=== PATIENT | female | born 1970 | race Caucasian/White ===

== ENCOUNTER 2021-07-01 08:49 | Emergency (ER) | payer MEDICAID, SELFPAY ==
[2021-07-01 08:57] VITALS: BP 201/99; PULSE 88; RESP 19; TEMP 36.6; O2SAT 97; BMI 35.2
--- NOTE | 2021-07-01 10:12 | ED_ITS ---
HPI - Wound/Laceration General Chief Complaint: Wound/Laceration Stated Complaint: lumps on back of thigh Time Seen by Provider: 07/01/21 10:12 Source: patient Mode of arrival: ambulatory Limitations: no limitations History of Present Illness HPI narrative: 51-year-old female with a history of hypertension and diabetes presents for a lump on the back of her left thigh and a lump over her butt crack. She also has lumps and sores on her belly. Patient states she has had a couple months of these ?breakouts? mostly on her belly and sometimes on her inner thigh. She has small red lesions that are sore and stick to her shirt when it is on her belly. Patient has had abscesses in the past, has never had to have them drained. The most painful spot is on the back of her left thigh that developed 1 week ago. No fevers, no nausea or vomiting, patient feels well otherwise. Patient saw her PCP who prescribed cream for yeast and an antibiotic for which patient does not know what it is. Patient says that those did not help. I am unclear if she actually got an antibiotic or if she got fluconazole instead. I do not have those records. Related Data Previous Rx's Medication Instructions Recorded cephalexin 500 mg capsule 500 mg PO QID 7 Days #28 cap 07/01/21 doxycycline hyclate 100 mg capsule 100 mg PO BID 10 Days #20 cap 07/01/21 Allergies Allergy/AdvReac Type Severity Reaction Status Date / Time No Known Allergies Allergy Unverified 06/22/20 16:36 [No Known Allergies*] Review of Systems Constitutional: Constitutional: Denies body ache(s), Denies chills, Denies fatigue, Denies fever(s), Denies headache(s), Denies malaise and Denies weakness Eyes: Eyes: Denies diplopia ENT: Denies vertigo, Denies dizziness, Denies headache(s) and Denies throat swelling Cardiovascular: Cardiovascular: Denies chest pain, Denies syncope, Denies leg edema, Denies lightheadedness, Denies Loss of Consciousness, Denies palpitations and Denies dyspnea Respiratory: Respiratory: Denies chest congestion, Denies cough and Denies dyspnea Gastrointestinal: Gastrointestinal: Denies abdominal pain, Denies hematochezia, Denies constipation, Denies diarrhea and Denies vomiting Musculoskeletal: Musculoskeletal: Reports no additional musculoskeletal complaints Integumentary/Breasts: Skin/Breast: Reports erythema, Reports rash, Reports skin pain and Reports sores Neurologic: Denies confusion, Denies vertigo, Denies dizziness, Denies syncope, Denies headache(s) and Denies weakness Psychiatric: Psychiatric: Denies anxiety, Denies confusion and Denies depression Endocrine: Endocrine: Denies fatigue and Denies palpitations Allergic/Immunologic: Allergic/Immunologic: Denies throat swelling PMFSH Past Medical History Medical History Diabetes HTN (hypertension) Social History Social History Advance Directives: No Patient : No Physical Exam Vital Signs: Vital Signs: Last Vital Signs Temp 98 F 07/01/21 08:57 Pulse 88 07/01/21 08:57 Resp 19 07/01/21 08:57 BP 201/99 H 07/01/21 08:57 Pulse Ox 97 07/01/21 08:57 Body Mass Index 35.2 Const: General: No confusion Nutritional Appearance: well nourished Orientation/consciousness: No confusion Limitations: no limitations Eyes: Conjunctivae: conjunctivae normal Pupils: Equal, round and reactive pupils present EOM: EOMs intact bilaterally Neck: Neck: Yes full ROM, Yes no lymphadenopathy and Yes supple Resp: Effort & Inspection: normal respiratory effort and able to speak in complete sentences Auscultation: clear to auscultation bilaterally, no crackles, no rales, no rhonchi and no wheezes Cardio: Rate: regular rate Rhythm: regular rhythm Heart sounds: S1 normal heart sound present and S2 normal heart sound present Skin: Other: Patient has multiple circular, excoriated, red lesions on her abdomen, she has an injury dated erythematous 2 cm non draining Jaime lesion on the back of her left thigh. Patient has are resolving abscess on the top of her gluteal cleft. No pointing, no drainage. Neuro: General: No confusion Cranial nerves: Yes Equal, round and reactive pupils present Extrem: General: Yes normal to inspection and Yes full ROM Psych: Appearance: grossly normal Affect: normal affect Attitude: cooperative Thought process: Normal thought process present Course Course Course Narrative: 51-year-old female with 2 months of multiple small abscesses, now presents for indurated, red, hard, non pointing lesion back of left thigh. We discussed if incision and drainage would be appropriate today. I think most likely it will not reveal much pus, as there is no fluctuance Discussed in detail that patient could should come back in 4 days if abscess is pointing, draining, not resolving. And we will do incision and drainage at that time I have it looks like this patient may be an MRSA carrier, will prescribe doxy and Keflex, will have patient follow-up with Dermatology Patient's blood pressure was elevated today, states that she did not take her blood pressure medicine today. Repeat BP 163/78 Discharge Plan Discharge Clinical Impression: Abscess of skin Qualifiers: Site of cutaneous abscess: unspecified site Qualified Code(s): L02.91 - Cutaneous abscess, unspecified Patient Disposition: Home, Self-Care Additional Instructions: Please call [facility] in [place] at [phone]. I have referred you to them, however when she had to call them as well. Please take both antibiotics. Please return if the bump on the back of your thigh gets worse, especially if by it is worse, at that point we may need to do an incision and drainage. Please return sooner if you have fevers, nausea vomiting, or any other new or concerning symptoms Prescriptions: New doxycycline hyclate 100 mg capsule 100 mg PO BID 10 Days Qty: 20 RF: 0 cephalexin 500 mg capsule 500 mg PO QID 7 Days Qty: 28 RF: 0 Referrals: Felisha Jones MD [Physician] - 2 days (Multiple abscesses on patient's abdomen and posterior thighs)
[2021-07-01 10:39] VITALS: BP 163/78; PULSE 69; RESP 16; TEMP 36.5; O2SAT 96
== END 2021-07-01 10:46 | disposition home or self-care (01) ==
PROVIDERS: Emergency Provider Emergency Medicine Emergency Medical Services; PCP Nurse Practitioner Family
DX: L02.91 Cutaneous abscess, unspecified (principal); I10 Essential (primary) hypertension; E11.9 Type 2 diabetes mellitus without complications; Z79.899 Other long term (current) drug therapy
CPT/HCPCS: 99283; 99284

== ENCOUNTER 2021-08-05 10:08 | Emergency (ER) | payer MEDICAID, SELFPAY ==
[2021-08-05 10:11] VITALS: BP 173/95; PULSE 89; RESP 18; TEMP 36.8; O2SAT 99; BMI 35.2
--- NOTE | 2021-08-05 11:41 | ED_ITS ---
HPI - Skin/Abscess/Foreign Bdy General Chief complaint: Skin/Abscess/Foreign Body Stated complaint: abscess Time Seen by Provider: 08/05/21 11:40 Source: patient Mode of arrival: ambulatory Limitations: no limitations History of Present Illness HPI narrative: 51-year-old female came in for evaluation of abscess. Patient been developing abscesses in different part of her body's, for the past 2 days she has been developing abscess on the left buttock cheek, which is draining pus for the past couple days, patient declined fever or chills. Related Data Previous Rx's Medication Instructions Recorded cephalexin 500 mg capsule 500 mg PO QID 7 Days #28 cap 07/01/21 doxycycline hyclate 100 mg capsule 100 mg PO BID 10 Days #20 cap 07/01/21 doxycycline hyclate 100 mg tablet 100 mg PO BID #14 tab 08/05/21 Allergies Allergy/AdvReac Type Severity Reaction Status Date / Time No Known Allergies Allergy Unverified 06/22/20 16:36 [No Known Allergies*] Review of Systems Review of Systems: All other systems are reviewed and are negative Constitutional: Reports as per HPI and Reports no additional constitutional complaints Eyes: Reports as per HPI and Reports no additional eye complaints Reports system reviewed and no additional complaints, except as documented Cardiovascular: Reports as per HPI and Reports no additional cardiovascular complaints Respiratory: Reports as per HPI and Reports no additional respiratory complaints Gastrointestinal: Reports as per HPI and Reports no additional gastrointestinal complaints Genitourinary: Reports no additional female genitourinary complaints Musculoskeletal: Reports no additional musculoskeletal complaints Skin/Breast: Reports system reviewed and no additional complaints, except as docu Psychiatric: Reports no additional psychiatric complaints Endocrine: Reports no additional endocrine complaints Hematologic/Lymphatic: Reports no additional hematologic/lymphatic complaints Allergic/Immunologic: Reports no additional allergic/immunologic complaints Reports system reviewed and no additional complaints, except as documented and Reports Abnormal speech present [facility] Past Medical History Medical History Diabetes HTN (hypertension) Social History Social History Advance Directives: Yes Advance Directives Information Provided: Yes Advance Directives on File: No Patient : No Physical Exam Vital Signs: Vital Signs: Last Vital Signs Temp 98.3 F 08/05/21 10:11 Pulse 89 08/05/21 10:11 Resp 18 08/05/21 10:11 BP 173/95 H 08/05/21 10:11 Pulse Ox 99 08/05/21 10:11 Body Mass Index 35.2 Vital signs have been reviewed as appeared to be correct. Blood pressure elevated.Heart rate normal. Respiration rate normal. Temperature normal. Oxygen saturation normal. Appearance: Alert. Oriented X3. No acute distress. Head: Normal external exam. Normocephalic. Atraumatic. No [place] signs noted. No raccoon eyes noted Eyes: PERRLA. EOMI. Conjunctiva and sclera normal. Eyelids normal. ENT: TM's Normal. Pharynx normal. Uvula midline. Moist mucous membranes. No trismus noted. No drooling noted. No muffled voice noted. Neck: Normal inspection. Neck supple. FROM. No adenopathy. Thyroid Normal. No meningeal signs. No neck mass noted. CVS: Normal heart rate and rhythm. Heart sound normal. No murmurs noted. Pulses normal throughout. Respiratory: No respiratory distress. Painless inspiration. Breath sounds normal. No wheezes/rales/rhonchi noted. Chest nontender. No accessory muscle usage noted or decreased air movement noted. Abdomen: Soft and nontender. Bowel sounds normal in all 4 quadrants. No distention noted. No organomegaly noted. No visible injury noted. Back: No CVA tenderness. Full range of motion noted. Rectal exam: 3 x 3 cm area of fluctuation surrounded by area of erythema and tenderness, white pus is been draining. Skin: Skin warm and dry. Normal skin color. Normal skin turgor. No rashes/lesions/lacerations noted. Extremities: No lower extremity edema. Extremities exhibit normal range of motion. Extremities nontender. Neuro: Oriented X 3. Cranial nerve exam: II-XII are grossly intact No motor deficit. No sensory deficit. Reflexes normal. MDM - Skin/Abscess/Foreign Bdy MDM Narrative Medical decision making narrative: Assessment and plan. Right buttock cheek abscess status post I&D, start patient on doxycycline. Procedures Abscess I/D Site: other (Right buttock cheek) Side (if applicable): right Local Anesthetic: lidocaine 1% Amount of anesthesia used (mL): 5 Technique: incised with blade Amount of fluid expressed (mL): 3 Sent for culture/gram staining?: No Irrigation: No Packing used?: none Complications: pain Discharge Plan Discharge Clinical Impression: Abscess of skin or subcutaneous tissue Patient Disposition: Home, Self-Care Instructions: Abscess (ED) Prescriptions: New doxycycline hyclate 100 mg tablet 100 mg PO BID Qty: 14 RF: 0 No Action doxycycline hyclate 100 mg capsule 100 mg PO BID 10 Days Qty: 20 RF: 0 cephalexin 500 mg capsule 500 mg PO QID 7 Days Qty: 28 RF: 0 Referrals: Eloina Zamora NP [Primary Care Provider] - 2 days
[2021-08-05] MEDS: Lidocaine HCl 1 % MPF 5 ML VIAL SUBCUT (11:45)
== END 2021-08-05 12:06 | disposition home or self-care (01) ==
PROVIDERS: Emergency Provider Emergency Medicine; PCP Nurse Practitioner Family
DX: L02.31 Cutaneous abscess of buttock (principal); E11.9 Type 2 diabetes mellitus without complications; I10 Essential (primary) hypertension
CPT/HCPCS: 10060; 99283; 99284

== ENCOUNTER 2023-07-21 02:17 | Emergency (ER) | payer OTHER, SELFPAY ==
[2023-07-21 02:26] VITALS: BP 187/91; PULSE 90; RESP 18; TEMP 36.7; O2SAT 95; BMI 38.6
[2023-07-21 02:54] VITALS: BP 167/81; PULSE 92; RESP 17; TEMP 36.8; O2SAT 96
--- OUTSIDE RECORDS SUMMARY | 2023-07-21 02:54 | XMS_ITS | Continuity of Care Document ---
Author Name Unknown Organization [facility] Address [address] [place] [address]- Care Team Providers Care Mechanical Intern Name Role Phone Sera KIM, Eloina Roberts Primary Care Physician Encounter [facility] Date(s): 10/19/19 - 10/29/19 [facility] [address] [place] [phone] Attending Physician: Roosevelt Bradshaw Admitting Physician: Roosevelt Bradshaw Referring Physician: AdmtrRoosevelt Allergies, Adverse Reactions, Alerts Substance Reaction Severity Status lisinopril cough Active Immunizations Given and Recorded Vaccine Date Status Refusal Reason influenza virus vaccine, inactivated 1 10/19/19 Gi breann influenza virus vaccine, inactivated 2 08/03/18 Gi breann influenza virus vaccine, inactivated 3 08/13/17 Gi breann influenza virus vaccine, inactivated 08/12/16 Give n influenza virus vaccine, inactivated 08/12/16 Give n influenza virus vaccine, inactivated 07/21/15 Give n tetanus/diphtheria/pertussis, acel(Tdap) 08/13/17 Given diphtheria-tetanus toxoids (DT) 10/16/03 Given 1Result Comment: FLU [facility] [id number] 2Result Comment: [08/03/2018] [facility] [id number] 3Result Comment: [id number] Medications amLODIPine 5 mg oral tablet 5 mg, 1, tablet, By Mouth, Daily, # 30 tablet, Refills 6, Tot. Refills 6, Maintenance, 10/19/19 11:58:00 EST, Route to Pharmacy Electronically, [facility]/pharmacy #[id number], 155, cm, 10/19/19 11:56:00 EST, Height Start Date: 10/19/19 Stop Date: 05/16/20 Status: Ordered losartan 100 mg oral tablet 1 tablet = 100 mg, By Mouth, Daily, # 30 tablet, 6 Refills, Maintenance, 10/19/19 11:52:00 EST, Tablet, [facility]/pharmacy #[id number], 155, cm, 10/19/19 11:24:00 EST, Height Start Date: 10/19/19 Stop Date: 05/16/20 Status: Ordered omeprazole 20 mg oral enteric coated capsule 1 capsule = 20 mg, By Mouth, Daily, # 30 capsule, 5 Refills, Maintenance, 11/26/18 11:39:04 EST Start Date: 11/26/18 Stop Date: 05/25/19 Status: Ordered Problem List Condition Effective Dates Status Health Status Inform ant Anemia(Confirmed) Active Benign paroxysmal positional vertigo(Confirmed) Active Heel spur(Confirmed) 1 12/25/17 Active Cardiomyopathy - . Resolved 06(Confirmed) Active High blood pressure(Confirmed) Active Dyspepsia(Confirmed) Active Recurrent ventral incisional hernia(Confirmed) Active Smoking(Confirmed) Active 1Left side - x-ray Social History Social History Type Response Tobacco Use: 4 or less cigar ettes(less than 1/4 pack)/day in last 30 days. Sex
--- OUTSIDE RECORDS SUMMARY | 2023-07-21 02:54 | XMS_ITS | Continuity of Care Document ---
Author Name Unknown Organization [facility] ter Address [address] [place] [phone]- Care Team Providers Care Grinding And Polishing Laborer Name Role Phone Sera KIM, Eloina Roberts Primary Care Physician Encounter [facility] Date(s): 10/19/19 - 10/26/[address] [phone]- [facility] Attending Physician: Eloina Zamora NP Allergies, Adverse Reactions, Alerts Substance Reaction Severity [...] toxoids (DT) 10/16/03 Given 1Result Comment: FLU [facility] 25652-785-85 2Result Comment: [08/03/2018] [facility] [id number] 3Result Comment: [id number] Medications amLODIPine 5 mg oral tablet 5 mg, 1, tablet, By Mouth, Daily, # 30 tablet, Refills 6, Tot. Refills 6, Maintenance, 10/19/19 11:58:00 EST, Route to Pharmacy Electronically, [facility]/pharmacy #[id number], 155, cm, 10/19/19 11:56:00 EST, Height Start Date: 10/19/19 Stop Date: 05/16/20 Status: Ordered losartan 100 mg oral tablet 1 tablet = 100 mg, By Mouth, Daily, # 30 tablet, 6 Refills, Maintenance, 10/19/19 11:52:00 EST, Tablet, [facility]/pharmacy #[id number], 155, cm, 10/19/19 11:24:00 EST, [...]
--- OUTSIDE RECORDS SUMMARY | 2023-07-21 02:54 | XMS_ITS | Continuity of Care Document ---
Author Name Unknown Organization [facility] Adult Address [address] [place] [phone]- Care Team Providers Care Cattyman Name Role Phone Sera KIM, Eloina Roberts Primary Care Physician Encounter [facility] Date(s): 01/04/21 - 02/03/21 [facility] [address] [place] [phone]- Allergies, Adverse Reactions, Alerts Substance Reaction Severity Status lisinopril cough Active Immunizations Given and Recorded Vaccine Date Status Refusal Reason influenza virus vaccine, inactivated 1 09/12/20 Gi breann influenza virus vaccine, inactivated 2 10/19/19 Gi breann influenza virus vaccine, inactivated 3 08/03/18 Gi breann influenza virus vaccine, inactivated 4 08/13/17 Gi breann influenza virus vaccine, inactivated 08/12/16 Give n influenza virus vaccine, inactivated 08/12/16 Give n influenza virus vaccine, inactivated 07/21/15 Give n tetanus/diphtheria/pertussis, acel(Tdap) 08/13/17 Given diphtheria-tetanus toxoids (DT) 10/16/03 Given 1Result Comment: [facility]: [id number] 2Result Comment: FLU [facility] [id number] 3Result Comment: [08/03/2018] [facility] [id number] 4Result Comment: [id number] Medications amLODIPine 10 mg oral tablet See Instructions, TAKE 1 TABLET BY MOUTH EVERY DAY, # 90 tablet, 1 Refills, Maintenance, 01/30/21 12:53:00 EDT, [facility]/pharmacy #[id number], 155, cm, 01/02/21 11:19:00 EDT, Height Start Date: 01/30/21 Status: Ordered amLODIPine 10 mg oral tablet 1 tablet = 10 mg, By Mouth, Daily, # 30 tablet, 0 Refills, Maintenance, 01/02/21 11:14:00 EDT, Tablet, [facility]/pharmacy #[id number], Partial fill upon patient request if the prescription is for a schedule II opioid drug., 155, cm, 01/02/21 10:46:00 EDT, Height Start Date: 01/02/21 Stop Date: 02/01/21 Status: Ordered BLOOD PRESSURE MONITOR BLOOD PRESSURE MONITOR, See Instructions, # 1 each, Refills 0, Tot. Refills 0, Maintenance, DX: HYPERTENSION, 06/29/20 12:53:00 EDT, Supply Start Date: 06/29/20 Status: Ordered ketoconazole 2% topical cream 1 application, Topically, Daily, # 60 Gm, 0 Refills, Maintenance, 11/27/20 13:46:00 EST, Cream, [facility]/pharmacy #[id number], Partial fill upon patient request if the prescription is for a schedule II opioid drug., 1 application Topically Daily, 155, cm, ... Start Date: 11/27/20 Status: Ordered losartan 50 mg oral tablet 50 mg, 1, tablet, By Mouth, Daily, # 30 tablet, Refills 6, Tot. Refills 6, Maintenance, 12/15/20 8:44:00 EST, Route to Pharmacy Electronically, [facility]/pharmacy #[id number], Partial fill upon patient request if the prescription is for a schedule II opioid drug.... Start Date: 12/15/20 Stop Date: 07/13/21 Status: Ordered meloxicam 15 mg oral tablet See Instructions, TAKE 1 TABLET BY MOUTH EVERY DAY, # 30 tablet, 0 Refills, Maintenance, [facility] STORE [id number], 155, cm, 01/02/21 11:19:00 EDT, Height Start Date: 01/30/21 Status: Ordered meloxicam 15 mg oral tablet 1 tablet = 15 mg, By Mouth, Daily, # 30 tablet, 0 Refills, Maintenance, 01/02/21 11:29:00 EDT, Tablet, [facility]/pharmacy #[id number], Partial fill upon patient request if the prescription is for a schedule II opioid drug., 155, cm, 01/02/21 11:19:00 EDT, Height Start Date: 01/02/21 Stop Date: 02/01/21 Status: Ordered metFORMIN 500 mg oral tablet 1 tablet = 500 mg, By Mouth, 2 times a day, # 60 tablet, 11 Refills, Maintenance, 01/04/21 9:20:00 EDT, Tablet, [facility]/pharmacy #[id number], Partial fill upon patient request if the prescription is for a schedule II opioid drug., 155, cm, 01/02/21 11:19:00 EDT... Start Date: 01/04/21 Stop Date: 12/30/21 Status: Ordered MoviPrep oral powder for reconstitution 240 mL, By Mouth, Every 15 minutes, Dose #1 evening before colonoscopy and dose #2 is 6 hours before colonoscopy, # 1 each, 0 Refills, Acute 04/06/21 6:30:00 EDT, 04/05/21 17:00:00 EDT, REC Powder, [facility]/pharmacy #[id number], test date 04/06/21, 240 mL By Mouth... Start Date: 04/05/21 Stop Date: 04/06/21 Status: Ordered Problem List Condition Effective Dates Status Health Status Inform ant Anemia(Confirmed) Active Benign paroxysmal positional vertigo(Confirmed) Active Heel spur(Confirmed) 1 12/25/17 Active Cardiomyopathy - . Resolved 06(Confirmed) Active Diabetes(Confirmed) Active High blood pressure(Confirmed) Active Dyspepsia(Confirmed) Active Recurrent ventral incisional hernia(Confirmed) Active Smoking(Confirmed) Active 1Left side - x-ray Social History Social History Type Response Tobacco Use: 4 or less cigar ettes(less than 1/4 pack)/day in last 30 days. Sex
--- OUTSIDE RECORDS SUMMARY | 2023-07-21 02:54 | XMS_ITS | Continuity of Care Document ---
Author Name Unknown Organization [facility] Address [address] [place] [phone]- Care Team Providers Care Division Supervisor Name Role Phone Sera KIM, Eloina Roberts Primary Care Physician Encounter [facility] Date(s): 01/10/20 - 01/20/20 [facility] [address] [place] [phone]- [facility] Attending Physician: Roosevelt Bradshaw Admitting Physician: AdmRoosevelt méndez Referring Physician: AdmtrRoosevelt Allergies, Adverse Reactions, Alerts [...] toxoids (DT) 10/16/03 Given 1Result Comment: FLU [facility] [id number] 2Result Comment: [08/03/2018] [facility] [id number] 3Result Comment: [id number] Medications amLODIPine 5 mg oral tablet 5 mg, 1, tablet, By Mouth, Daily, # 30 tablet, Refills 6, Tot. Refills 6, Maintenance, 10/19/19 11:58:00 EST, Route to Pharmacy Electronically, [facility]/pharmacy #[id number], 155, cm, 10/19/19 11:56:00 EST, Height Start Date: 10/19/19 Stop Date: 05/16/20 Status: Ordered losartan 100 mg oral tablet 1 tablet = 100 mg, By Mouth, Daily, # 30 tablet, 6 Refills, Maintenance, 10/19/19 11:52:00 EST, Tablet, [id number], 155, cm, 10/19/19 11:24:00 EST, Height [...]
--- OUTSIDE RECORDS SUMMARY | 2023-07-21 02:54 | XMS_ITS | Continuity of Care Document ---
Author Name Unknown Organization [facility] Adult Address [address] [place] [address]- Care Team Providers Care Commercial Agent Name Role Phone Sera KIM, Eloina Roberts Primary Care Physician [place] [facility] [place]22 [facility] [address] [place] [address]- Encounter Diagnosis Hypertension(Discharge Diagnosis) - 04/23/22 Attending Physician: Eloina Zamora NP Allergies, Adverse Reactions, Alerts Substance Reaction Severity Status lisinopril cough Active Immunizations Given and Recorded Vaccine Date Status Refusal Reason influenza virus vaccine, inactivated 1 08/10/21 Gi breann influenza virus vaccine, inactivated 2 09/12/20 Gi breann influenza virus vaccine, inactivated 3 10/19/19 Gi breann influenza virus vaccine, inactivated 4 08/03/18 Gi breann influenza virus vaccine, inactivated 5 08/13/17 Gi breann influenza virus vaccine, inactivated 08/12/16 Give n influenza virus vaccine, inactivated 08/12/16 Give n influenza virus vaccine, inactivated 07/21/15 Give n influenza virus vaccine, inactivated 12/01/14 Eleno rded SARS-CoV-2 (COVID-19) Ad26 vaccine 6 02/06/21 Give n tetanus/diphtheria/pertussis, acel(Tdap) 08/13/17 Given pneumococcal 23-valent vaccine 12/01/14 Recorded diphtheria-tetanus toxoids (DT) 10/16/03 Given 1Result Comment: [facility]# [id number] 2Result Comment: [facility]: [id number] 3Result Comment: FLU [facility] [id number] 4Result Comment: [08/03/2018] [facility] [id number] 5Result Comment: [id number] 6Result Comment: [facility]: [id number] Medications amLODIPine 10 mg oral tablet 1 tablet, By Mouth, Daily, # 90 tablet, 1 Refills, [id number], 153, cm, 08/10/21 10:40:00 EDT,Height, 84, kg, 04/06/21 9:15:00 EDT, Dry Weight Start Date: 08/16/21 Status: Ordered Bactrim DS 800 mg-160 mg oral tablet 1 tablet, By Mouth, 2 times a day, for 10 days, # 20 tablet, 0 Refills, Acute 05/03/22 11:50:00 EDT, 04/23/22 11:50:00 EDT, Tablet, [facility]/pharmacy #[id number], Partial fill upon patient request if the prescription is for a schedule II opioid drug., 1 tablet B... Start Date: 04/23/22 Stop Date: 05/03/22 Status: Ordered BLOOD PRESSURE MONITOR BLOOD PRESSURE MONITOR, See Instructions, # 1 each, Refills 0, Tot. Refills 0, Maintenance, DX: HYPERTENSION, 06/29/20 12:53:00 EDT, Supply Start Date: 06/29/20 Status: Ordered cephalexin monohydrate 500 mg oral capsule 1 capsule = 500 mg, By Mouth, 3 times a day, # 30 capsule, 0 Refills, Maintenance, 02/08/22 9:13:00EDT, Capsule, [facility]/pharmacy #[id number], Partial fill upon patient request if the prescription is for a schedule II opioid drug., 153, cm, 02/08/22 8:52:00 ED... Start Date: 02/08/22 Stop Date: 02/18/22 Status: Ordered hydrochlorothiazide 25 mg oral tablet 25 mg, 1, tablet, By Mouth, Daily, # 30 tablet, Refills 1, Tot. Refills 1, Maintenance, 04/23/22 11:48:00 EDT, Route to Pharmacy Electronically, [facility]/pharmacy #[id number], Partial fill upon patient request if the prescription is for a schedule II opioid drug... Start Date: 04/23/22 Stop Date: 06/22/22 Status: Ordered [employer] COVID-19 Vaccine preservative-free intramuscular suspension 0.5 mL, Intramuscular, Once, # 0.5 mL, 0 Refills, Soft Stop, 02/06/21 11:54:00 EDT, Suspension, [facility]/pharmacy #[id number], Partial fill upon patient request if the prescription is for a schedule II opioid drug., 0.5 mL Intramuscular Once, 155, cm, 02/06/21 1... Start Date: 02/06/21 Status: Ordered losartan 50 mg oral tablet 50 mg, 1, tablet, By Mouth, Daily, # 90 tablet, Refills 3, Tot. Refills 3, Maintenance, 02/06/21 11:55:00 EDT, Route to Pharmacy Electronically, [facility]/pharmacy #[id number], Partial fill upon patient request if the prescription is for a schedule II opioid drug... Start Date: 02/06/21 Stop Date: 02/01/22 Status: Ordered metFORMIN 500 mg oral tablet 1 tablet = 500 mg, By Mouth, 2 times a day, # 60 tablet, 11 Refills, Maintenance, 01/04/21 9:20:00 EDT, Tablet, [facility]/pharmacy #[id number], Partial fill upon patient request if the prescription is for a schedule II opioid drug., 155, cm, 01/02/21 11:19:00 EDT... Start Date: 01/04/21 Stop Date: 12/30/21 Status: Ordered omeprazole 20 mg oral delayed release tablet 1 tablet = 20 mg, By Mouth, Daily, # 30 tablet, 11 Refills, Maintenance, 04/23/22 11:47:00 EDT, [facility]/pharmacy #[id number], Partial fill upon patient request if the prescription is for a schedule II opioid drug., 153, cm, 04/23/22 11:21:00 EDT, Height, 84, kg... Start Date: 04/23/22 Stop Date: 04/18/23 Status: Ordered Problem List Condition Effective Dates Status Health Status Inform ant Anemia(Confirmed) Active Benign paroxysmal positional vertigo(Confirmed) Active Heel spur(Confirmed) 1 12/25/17 Active Cardiomyopathy - . Resolved 06(Confirmed) Active Diabetes(Confirmed) Active High blood pressure(Confirmed) Active Hypertension(Confirmed) Active Dyspepsia(Confirmed) Active Obese class II(Confirmed) Active Recurrent ventral incisional hernia(Confirmed) Active Smoking(Confirmed) Active 1Left side - x-ray Diagnosis Diagnosis Type Effective Dates Health Status Cl inical Service Informant Hypertension Discharge Diagnosis 04/23/22 Vital Signs Most recent to oldest [Reference Range]: 1 2 3 Height 153 cm (04/23/22 11:54 AM) 153 cm (04/23/22 11:21 AM) 153 cm (04/23/22 11:17 AM) Weight 90.4 kg (04/23/22 11:17 AM) Pulse Rate [55-90 bpm] 81 bpm (04/23/22 11:17 AM) Body Mass Index [18.5-24.99] 38.62 *>HHI* (04/23/22 11:17 AM) Blood Pressure [90-138/55-84 mm Hg] 148/82mm Hg *H* (04/23/22 11:54 AM) 156/87mm Hg *H* (04/23/22 11:21 AM) 164/90mm Hg *H* (04/23/22 11:17 AM) Blood pressure sites Arm, left (04/23/22 11:54 AM) Arm, left (04/23/22 11:21 AM) Arm, left (04/23/22 11:17 AM) Weight Obtained Via Standing scale (04/23/22 11:17 AM) Social History Social History Type Response Tobacco Use: 4 or less cigar ettes(less than 1/4 pack)/day in last 30 days. Sex
--- OUTSIDE RECORDS SUMMARY | 2023-07-21 02:54 | XMS_ITS | Continuity of Care Document ---
Author Name Unknown Organization [facility] Adult Address [address] [place] [address]- Care Team Providers Care Hat Liner Name Role Phone Sera KIM, Eloina Roberts Primary Care Physician [place] [facility] [place] 09/15/21 - 01/13/22 [facility] [address] [place] [address]- Attending Physician: Eloina Zamora NP Allergies, Adverse [...] diphtheria-tetanus toxoids (DT) 10/16/03 Given 1Result Comment: [facility]# [id number] 2Result Comment: [facility]: [id number] 3Result Comment: FLU [facility] [id number] 4Result Comment: [08/03/2018] [facility] [id number] 5Result Comment: [id number] 6Result Comment: [facility]: [id number] Medications amLODIPine 10 mg oral tablet 1 tablet, By Mouth, Daily, # 90 tablet, 1 Refills, [id number], 153, cm, 08/10/21 10:40:00 EDT,Height, 84, kg, 04/06/21 9:15:00 EDT, Dry Weight Start Date: 08/16/21 Status: Ordered BLOOD PRESSURE MONITOR BLOOD PRESSURE MONITOR, See Instructions, # 1 each, Refills 0, Tot. Refills 0, Maintenance, DX: HYPERTENSION, 06/29/20 12:53:00 EDT, Supply Start Date: 06/29/20 Status: Ordered [employer] COVID-19 Vaccine preservative-free intramuscular suspension 0.5 mL, Intramuscular, Once, # 0.5 mL, 0 Refills, Soft Stop, 02/06/21 11:54:00 EDT, Suspension, [facility]/pharmacy #[id number], Partial fill upon patient request if the prescription is for a schedule II opioid drug., 0.5 mL Intramuscular Once, 155, cm, 02/06/21 1... Start Date: 02/06/21 Status: Ordered losartan 50 mg oral tablet 50 mg, 1, tablet, By Mouth, Daily, # 90 tablet, Refills 3, Tot. Refills 3, Maintenance, 02/06/21 11:55:00 EDT, Route to Pharmacy Electronically, [facility]/pharmacy #[id number], Partial fill upon patient request if the prescription is for a schedule II opioid drug... Start Date: 02/06/21 Stop Date: 02/01/22 Status: Ordered metFORMIN 500 mg oral tablet 1 tablet = 500 mg, By Mouth, 2 times a day, # 60 tablet, 11 Refills, Maintenance, 01/04/21 9:20:00 EDT, Tablet, [facility]/pharmacy #[id number], Partial fill upon patient request if the prescription is for a schedule II opioid drug., 155, cm, 01/02/21 11:19:00 EDT... Start Date: 01/04/21 Stop Date: 12/30/21 Status: Ordered omeprazole 20 mg oral delayed release tablet 1 tablet = 20 mg, By Mouth, Daily, # 30 tablet, 11 Refills, Maintenance, 08/10/21 10:37:00 EDT, [facility]/pharmacy #[id number], Partial fill upon patient request if the prescription is for a schedule II opioid drug., 153, cm, 08/10/21 10:10:00 EDT, Height, 84, kg... Start Date: 08/10/21 Stop Date: 08/05/22 Status: Ordered sulfamethoxazole-trimethoprim 800 mg-160 mg oral tablet 1 tablet, By Mouth, 2 times a day, # 20 tablet, 0 Refills, Maintenance, 10/31/21 14:53:00 EST, Tablet, [facility]/pharmacy #[id number], Partial fill upon patient request if the prescription is for a schedule II opioid drug., 1 tablet By Mouth 2 times a day,x10 day... Start Date: 10/31/21 Stop Date: 11/10/21 Status: Ordered Problem List Condition Effective Dates Status Health Status Inform ant Anemia(Confirmed) Active Benign paroxysmal positional vertigo(Confirmed) Active Heel spur(Confirmed) 1 12/25/17 Active Cardiomyopathy - . Resolved 06(Confirmed) Active Diabetes(Confirmed) Active High blood pressure(Confirmed) Active Dyspepsia(Confirmed) Active Obese class II(Confirmed) Active Recurrent ventral incisional hernia(Confirmed) Active Smoking(Confirmed) Active 1Left side - x-ray Social History Social History Type Response Tobacco Use: 4 or less cigar ettes(less than 1/4 pack)/day in last 30 days. Sex
--- OUTSIDE RECORDS SUMMARY | 2023-07-21 02:54 | XMS_ITS | Continuity of Care Document ---
Author Name Unknown Organization [facility] Adult Address [address] [place] [address]- Care Team Providers Care Dressmaker Garment Fitter Name Role Phone Eloina Zamora NP Primary Care Physician En[place] [facility] [place] Date(s): 12/29/19 - 01/27/20 [facility] Adult [address] [place] [address]- [facility] Attending Physician: lEoina Zamora NP Allergies, Adverse Reactions, Alerts Substance [...] toxoids (DT) 10/16/03 Given 1Result Comment: [facility] [id number] 2Result Comment: [08/03/2018] [facility] [id number] 3Result Comment: [id number] Medications amLODIPine 5 mg oral tablet 5 mg, 1, tablet, By Mouth, Daily, # 30 tablet, Refills 6, Tot. Refills 6, Maintenance, 10/19/19 11:58:00 EST, Route to Pharmacy Electronically, [facility]/pharmacy #[id number], 155, cm, 10/19/19 11:56:00 EST, Height Start Date: 10/19/19 Stop Date: 05/16/20 Status: Ordered losartan 100 mg oral tablet 1 tablet = 100 mg, By Mouth, Daily, # 30 tablet, 6 Refills, Maintenance, 10/19/19 11:52:00 EST, Tablet, [facility]/pharmacy #[id number], 155, cm, 10/19/19 11:24:00 EST, [...]
--- OUTSIDE RECORDS SUMMARY | 2023-07-21 02:54 | XMS_ITS | Continuity of Care Document ---
Author Name Unknown Organization [facility] Address [address] [place] [address]- Care Team Providers Care Handle And Vent Machine Operator Name Role Phone Eloina Zamora NP Primary Care Physician [place] [facility] [place]13[place]21 [facility] [address] [place] [address]- Encounter Diagnosis Hypertension(Discharge Diagnosis) - 02/06/21 Attending Physician: Eloina Zamora NP Allergies, Adverse Reactions, Alerts Substance Reaction Severity Status lisinopril cough Active Immunizations Given and Recorded Vaccine Date Status Refusal Reason SARS-CoV-2 (COVID-19) Ad26 vaccine 1 02/06/21 Give n influenza virus vaccine, inactivated 2 09/12/20 Gi [...] diphtheria-tetanus toxoids (DT) 10/16/03 Given 1Result Comment: [facility]: [id number] 2Result Comment: [facility]: [id number] 3Result Comment: FLU [facility] [id number] 4Result Comment: [08/03/2018] [facility] [id number] 5Result Comment: [id number] Medications amLODIPine 10 mg oral tablet See Instructions, TAKE 1 TABLET BY MOUTH EVERY DAY, # 90 tablet, 1 Refills, Maintenance, 01/30/21 12:53:00 EDT, [facility]/pharmacy #[id number], 155, cm, 01/02/21 11:19:00 EDT, Height Start Date: 01/30/21 Status: Ordered BLOOD PRESSURE MONITOR BLOOD PRESSURE MONITOR, See Instructions, # 1 each, Refills 0, Tot. Refills 0, Maintenance, DX: HYPERTENSION, 06/29/20 12:53:00 EDT, Supply Start Date: 06/29/20 Status: Ordered [employer] COVID-19 Vaccine preservative-free intramuscular suspension 0.5 mL, Intramuscular, Once, # 0.5 mL, 0 Refills, Soft Stop, 02/06/21 11:54:00 EDT, Suspension, [facility]/pharmacy #[id number], Partial fill upon patient request if the prescription is for a schedule II opioid drug., 0.5 mL Intramuscular Once, 155, cm, 02/06/21 1... Start Date: 02/06/21 Status: Ordered ketoconazole 2% topical cream 1 application, Topically, Daily, # 60 Gm, 0 Refills, Maintenance, 11/27/20 13:46:00 EST, Cream, [facility]/pharmacy #[id number], Partial fill upon patient request if the prescription is for a schedule II opioid drug., 1 application Topically Daily, 155, cm, ... Start Date: 11/27/20 Status: Ordered losartan 50 mg oral tablet 50 mg, 1, tablet, By Mouth, Daily, # 90 tablet, Refills 3, Tot. Refills 3, Maintenance, 02/06/21 11:55:00 EDT, Route to Pharmacy Electronically, [facility]/pharmacy #[id number], Partial fill upon patient request if the prescription is for a schedule II opioid drug... Start Date: 02/06/21 Stop Date: 02/01/22 Status: Ordered meloxicam 15 mg oral tablet See Instructions, TAKE 1 TABLET BY MOUTH EVERY DAY, # 30 tablet, 0 Refills, Maintenance, [id number], 155, cm, 01/02/21 11:19:00 EDT, Height Start Date: 01/30/21 Status: Ordered meloxicam 15 mg oral tablet 1 tablet = 15 mg, By Mouth, Daily, # 30 tablet, 0 Refills, Maintenance, 01/02/21 11:29:00 EDT, Tablet, [id number], Partial fill upon patient request if the prescription is for a schedule II opioid drug., 155, cm, 01/02/21 11:19:00 EDT, Height Start Date: 01/02/21 Stop Date: 02/01/21 Status: Ordered metFORMIN 500 mg oral tablet 1 tablet = 500 mg, By Mouth, 2 times a day, # 60 tablet, 11 Refills, Maintenance, 01/04/21 9:20:00 EDT, Tablet, [id number], Partial fill upon patient request if [...] 6:30:00 EDT, 04/05/21 17:00:00 EDT, REC Powder, [id number], test date 04/06/21, 240 mL By Mouth... Start Date: 04/05/21 Stop Date: 04/06/21 Status: Ordered sulfamethoxazole-trimethoprim 800 mg-160 mg oral tablet 1 tablet, By Mouth, 2 times a day, # 20 tablet, 0 Refills, Maintenance, 02/06/21 12:04:00 EDT, Tablet, [id number], Partial fill upon patient request if the prescription is for a schedule II opioid drug., 1 tablet By Mouth 2 times a day,x10 day... Start Date: 02/06/21 Stop Date: 02/16/21 Status: Ordered Problem List Condition Effective Dates Status Health Status Inform ant Anemia(Confirmed) Active Benign paroxysmal positional vertigo(Confirmed) Active Heel spur(Confirmed) 1 12/25/17 Active Cardiomyopathy - . Resolved 06(Confirmed) Active Diabetes(Confirmed) Active High blood pressure(Confirmed) Active Dyspepsia(Confirmed) Active Recurrent ventral incisional hernia(Confirmed) Active Smoking(Confirmed) Active 1Left side - x-ray Diagnosis Diagnosis Type Effective Dates Health Status Cl inical Service Informant Hypertension Discharge Diagnosis 02/06/21 Vital Signs Most recent to oldest [Reference Range]: 1 Height 155 cm (02/06/21 11:44 AM) Weight 85 kg (02/06/21 11:44 AM) Oxygen Saturation [94-100 %] 100 % (02/06/21 11:44 AM) Pulse Rate [55-90 bpm] 80 bpm (02/06/21 11:44 AM) Body Mass Index [18.5-24.99] 35.38 *>HHI* (02/06/21 11:44 AM) Blood Pressure [90-138/55-84 mm Hg] 125/ 81mm Hg (02/06/21 11:44 AM) Mode of Delivery (Oxygen) Room air (02/06/21 11:44 AM) Blood pressure sites Arm, right (02/06/21 11:44 AM) Weight Obtained Via Standing scale (02/06/21 11:44 AM) Social History Social History Type Response Tobacco Use: 4 or less cigar ettes(less than 1/4 pack)/day in last 30 days. Sex
--- OUTSIDE RECORDS SUMMARY | 2023-07-21 02:54 | XMS_ITS | Continuity of Care Document ---
Author Name Unknown Organization [facility] Adult Address [address] [place] [address]- Care Team Providers Care All Round Butcher Name Role Phone Sera KIM, Eloina Roberts Primary Care Physician [place] [facility] [place]18/22 [facility] [address] [place] [address]- Attending Physician: Paolo Dominguez MD Allergies, Adverse Reactions, Alerts Substance Reaction Severity [...] diphtheria-tetanus toxoids (DT) 10/16/03 Given 1Result Comment: [facility]# [id number] 2Result Comment: [facility]: [phone] 3Result Comment: FLU [facility] [id number] 4Result Comment: [08/03/2018] [facility] [id number] 5Result Comment: [id number] 6Result Comment: [facility]: [id number] Medications amLODIPine 10 mg oral tablet 1 tablet, By Mouth, Daily, # 90 tablet, 1 Refills, [id number], 153, cm, 08/10/21 10:40:00 EDT,Height, 84, kg, [...] capsule, 0 Refills, Maintenance, 02/08/22 9:13:00EDT, Capsule, [facility]/pharmacy #[id number], Partial fill upon patient request if the prescription is for a schedule II opioid drug., 153, cm, 02/08/22 8:52:00 ED... Start Date: 02/08/22 Stop Date: 02/18/22 Status: Ordered hydrochlorothiazide 25 mg oral tablet 25 mg, 1, tablet, By Mouth, Daily, # 30 tablet, Refills 1, Tot. Refills 1, Maintenance, 04/23/22 11:48:00 EDT, Route to Pharmacy Electronically, [facility]/pharmacy #[id number], Partial fill upon patient request if the prescription is for a schedule II opioid drug... Start Date: 04/23/22 Stop Date: 06/22/22 Status: Ordered [employer] COVID-19 Vaccine preservative-free intramuscular suspension 0.5 mL, Intramuscular, Once, # 0.5 mL, 0 Refills, Soft Stop, 02/06/21 11:54:00 EDT, Susp[facility], [id number], Partial fill upon patient request if the prescription is for a schedule II opioid drug., 0.5 mL Intramuscular Once, 155, cm, 02/06/21 1... Start Date: 02/06/21 Status: Ordered losartan 50 mg oral tablet 50 mg, 1, tablet, By Mouth, Daily, # 90 tablet, Refills 3, Tot. Refills 3, Maintenance, 02/06/21 11:55:00 EDT, Route to Pharmacy Electronically, [facility]/pharmacy #[id number], Partial fill upon patient request if the prescription is for a schedule II opioid drug... Start Date: 02/06/21 Stop Date: 02/01/22 Status: Ordered metFORMIN 500 mg oral tablet 1 tablet = 500 mg, By Mouth, 2 times a day, # 60 tablet, 11 Refills, Maintenance, 01/04/21 9:20:00 EDT, Tablet, [facility]/pharmacy #[id number], Partial fill upon patient request if the prescription is for a schedule II opioid drug., 155, cm, 01/02/21 11:19:00 EDT... Start Date: 01/04/21 Stop Date: 12/30/21 Status: Ordered omeprazole 20 mg oral delayed release tablet 1 tablet = 20 mg, By Mouth, Daily, # 30 tablet, 11 Refills, Maintenance, 04/23/22 11:47:00 EDT, [facility]/pharmacy #[id number], Partial fill upon patient request if [...] Active Smoking(Confirmed) Active 1Left side - x-ray Vital Signs Most recent to oldest [Reference Range]: 1 2 Pulse Rate [55-90 bpm] 87 bpm (06/11/22 9:04 AM) Blood Pressure [90-138/55-84 mm Hg] 127/ 81mm Hg (06/11/22 9:10 AM) 140/84mm Hg *H* (06/11/22 9:04 AM) Blood pressure sites Arm, left (06/11/22 9:10 AM) Arm, left (06/11/22 9:04 AM) Social History Social History Type Response Tobacco Use: 4 or less cigar ettes(less than 1/4 pack)/day in last 30 days. Sex Care Team Personnel Name: Sera KIM, Eloina Roberts Address: [address] [place], [place] [address]
--- OUTSIDE RECORDS SUMMARY | 2023-07-21 02:54 | XMS_ITS | Continuity of Care Document ---
Author Name Unknown Organization [facility] Adult Address [address] [place] [address]- Care Team Providers Care Internal Medicine Doctor Name Role Phone Sera KIM, Eloina Roberts Primary Care Physician Encounter [facility] Date(s): 10/31/21 - 11/30/21 [facility] Adult [address] [place] [address]- Allergies, Adverse Reactions, Alerts Substance Reaction Severity [...] toxoids (DT) 10/16/03 Given 1Result Comment: [facility]# [id number] 2Result Comment: [facility]: [id number] 3Result Comment: FLU [facility] [id number] 4Result Comment: [08/03/2018] [facility] [id number] 5Result Comment: [id number] 6Result Comment: [facility]: [id number] Medications amLODIPine 10 mg oral tablet 1 tablet, By Mouth, Daily, # 90 tablet, 1 Refills, [facility] [id number], 153, cm, 08/10/21 10:40:00 EDT,Height, 84, kg, 04/06/21 9:15:00 EDT, Dry Weight Start Date: 08/16/21 Status: Ordered BLOOD PRESSURE MONITOR BLOOD PRESSURE MONITOR, See Instructions, # 1 each, Refills 0, Tot. Refills 0, Maintenance, DX: HYPERTENSION, 06/29/20 12:53:00 EDT, Supply Start Date: 06/29/20 Status: Ordered [employer] COVID-19 Vaccine preservative-free intramuscular suspension 0.5 mL, Intramuscular, Once, # 0.5 mL, 0 Refills, Soft Stop, 02/06/21 11:54:00 EDT, Suspension, [facility]/pharmacy #[id number], Partial fill upon patient request if the prescription is for a schedule II opioid drug., 0.5 mL Intramuscular Once, 155, cm, 02/06/21 1... Start Date: 02/06/21 Status: Ordered losartan 50 mg oral tablet 50 mg, 1, tablet, By Mouth, Daily, # 90 tablet, Refills 3, Tot. Refills 3, Maintenance, 02/06/21 11:55:00 EDT, Route to Pharmacy Electronically, [facility]/pharmacy #[id number], Partial fill upon patient request if [...] tablet, 11 Refills, Maintenance, 08/10/21 10:37:00 EDT, [facility]/pharmacy #[id number], Partial fill upon patient request if the prescription is for a schedule II opioid drug., 153, cm, 08/10/21 10:10:00 EDT, Height, 84, kg... Start Date: 08/10/21 Stop Date: 08/05/22 Status: Ordered sulfamethoxazole-trimethoprim 800 mg-160 mg oral tablet 1 tablet, By Mouth, 2 times a day, # 20 tablet, 0 Refills, Maintenance, 10/31/21 14:53:00 EST, Tablet, [facility]/pharmacy #[id number], Partial fill upon patient request if [...]
--- OUTSIDE RECORDS SUMMARY | 2023-07-21 02:54 | XMS_ITS | Continuity of Care Document ---
Author Name Unknown Organization [facility] Address [address] [place] [address]- Care Team Providers Care Body Mechanic Apprentice Name Role Phone Sera KIM, Eloina Roberts Primary Care Physician Encounter [facility] [place] Date(s): 04/22/21 - 05/22/21 [facility] [address] [place] [address]- Allergies, Adverse Reactions, Alerts Substance Reaction Severity [...] diphtheria-tetanus toxoids (DT) 10/16/03 Given 1Result Comment: [facility]: [id number] 2Result Comment: [facility]: [id number] 3Result Comment: FLU [facility] [id number] 4Result Comment: [08/03/2018] [facility] [id number] 5Result Comment: [id number] Medications amLODIPine 10 mg oral tablet See [...] EDT, Supply Start Date: 06/29/20 Status: Ordered [employer] COVID-19 Vaccine preservative-free intramuscular suspension 0.5 mL, Intramuscular, Once, # 0.5 mL, 0 Refills, Soft Stop, 02/06/21 11:54:00 EDT, [id number] upon patient request if the prescription is for a schedule II opioid drug., 0.5 mL Intramuscular Once, 155, cm, 02/06/21 1... Start Date: 02/06/21 Status: Ordered ketoconazole 2% topical cream 1 application, Topically, Daily, # 60 Gm, 0 Refills, Maintenance, 11/27/20 13:46:00 EST, [id number] upon patient request if [...] Ordered meloxicam 15 mg oral tablet 1 tablet, By Mouth, Daily, # 30 tablet, 0 Refills, Maintenance, 03/06/21 8:41:00 EDT, [facility] STORE [id number], 155, cm, 02/06/21 11:44:00 EDT, Height Start Date: 03/06/21 Status: Ordered metFORMIN 500 mg oral tablet 1 tablet = 500 mg, By Mouth, 2 times a day, # 60 tablet, 11 Refills, Maintenance, 01/04/21 9:20:00 EDT, Tablet, [facility]/pharmacy #[id number], Partial fill upon patient request if the prescription is for a schedule II opioid drug., 155, cm, 01/02/21 11:19:00 EDT... Start Date: 01/04/21 Stop Date: 12/30/21 Status: Ordered sulfamethoxazole-trimethoprim 800 mg-160 mg oral [...]
--- OUTSIDE RECORDS SUMMARY | 2023-07-21 02:54 | XMS_ITS | Continuity of Care Document ---
Author Name Unknown Organization [facility] Adult Address [address] [place] [address]- Care Team Providers Care Movers Name Role Phone Sera KIM, Eloina Roberts Primary Care Physician Encounter [facility] [place] Date(s): 11/17/20 - 11/24/[address] [address]- Encounter Diagnosis Acute laryngitis(Discharge Diagnosis) - 11/17/20 Sore throat(Discharge Diagnosis) - 11/17/20 Attending Physician: Not on Staff, Attending MD Allergies, Adverse Reactions, Alerts Substance Reaction [...] Given 1Result Comment: [facility]: [phone] 2Result Comment: FLU [facility] [phone] 3Result Comment: [08/03/2018] [facility] [id number] 4Result Comment: [id number] Medications BLOOD PRESSURE MONITOR BLOOD PRESSURE MONITOR, See Instructions, # 1 each, Refills 0, Tot. Refills 0, Maintenance, DX: HYPERTENSION, 06/29/20 12:53:00 EDT, Supply Start Date: 06/29/20 Status: Ordered omeprazole 20 mg oral enteric [...] Diagnosis Diagnosis Type Effective Dates Health Status Clinical Service Informant Acute laryngitis Discharge Diagnosis 11/17/20 Sore throat Discharge Diagnosis 11/17/20 Vital Signs Most recent to oldest [Reference Range]: 1 Height 155 cm (11/17/20 2:40 PM) Social History Social History Type Response Tobacco Use: 4 or less cigar ettes(less than 1/4 pack)/day in last 30 days. Sex
--- OUTSIDE RECORDS SUMMARY | 2023-07-21 02:54 | XMS_ITS | Continuity of Care Document ---
Author Name Unknown Organization [facility] Adult Address [address] [place] [address]- Care Team Providers Care Project Management Analyst Name Role Phone Eloina Zamora NP Primary Care Physician Encounter [facility] [place] Date(s): 03/09/20 - 07/07/20 [facility] Adult [address] [place] [address] [facility] Attending Physician: Eloina Zamora NP Allergies, Adverse [...] toxoids (DT) 10/16/03 Given 1Result Comment: FLU [facility] [id number] 2Result Comment: [08/03/2018] [facility] [id number] 3Result Comment: [id number] Medications BLOOD PRESSURE MONITOR BLOOD PRESSURE MONITOR, [...]
--- OUTSIDE RECORDS SUMMARY | 2023-07-21 02:54 | XMS_ITS | Continuity of Care Document ---
Author Name Unknown Organization [facility] Adult Address [address] [place] [address]- Care Team Providers Care Banana Handler Name Role Phone Sera KIM, Eloina Roberts Primary Care Physician Encounter [facility] [place] Date(s): 10/19/19 - 10/26/19 [facility] Adult [address] [place] [address]- [facility] Encounter Diagnosis Abdominal pain(Discharge Diagnosis) - 10/19/19 High blood pressure(Discharge Diagnosis) - 10/19/19 Attending Physician: Eloina Zamora NP Allergies, Adverse [...] (DT) 10/16/03 Given 1Result Comment: FLU [facility] [phone] 2Result Comment: [08/03/2018] [facility] [id number] 3Result Comment: [id number] Medications amLODIPine 5 mg oral tablet 5 mg, 1, tablet, By Mouth, Daily, # 30 tablet, Refills 6, Tot. Refills 6, Maintenance, 10/19/19 11:58:00 EST, Route to Pharmacy Electronically, [facility]/pharmacy #[id number], 155, cm, 10/19/19 11:56:00 EST, Height [...] Dates Health Status Cl inical Service Informant Abdominal pain Discharge Diagnosis 10/19/19 High blood pressure Discharge Diagnosis 10/19/19 Vital Signs Most recent to oldest [Reference Range]: 1 2 Height 155 cm (10/19/19 11:56 AM) 155 cm (10/19/19 11:24 AM) Weight 86.5 kg (10/19/19 11:24 AM) Oxygen Saturation [94-100 %] 98 % (10/19/19 11:24 AM) Pulse Rate [55-90 bpm] 76 bpm (10/19/19 11:24 AM) Body Mass Index [18.5-24.99] 36 *>HHI* (10/19/19 11:24 AM) Blood Pressure [90-138/55-84 mm Hg] 172/ 98mm Hg *H* (10/19/19 11:56 AM) 166/90mm Hg *H* (10/19/19 11:24 AM) Temperature [96.8-100.4 DegF] 98.0 DegF (10/19/19 11:24 AM) Mode of Delivery (Oxygen) Room air (10/19/19 11:24 AM) Blood pressure sites Arm, left (10/19/19 11:56 AM) Arm, left (10/19/19 11:24 AM) Temperature Route Temporal (10/19/19 11:24 AM) Weight Obtained Via Standing scale (10/19/19 11:24 AM) Social History Social History Type Response Tobacco Use: 4 or less cigar ettes(less than 1/4 pack)/day in last 30 days. Sex
--- OUTSIDE RECORDS SUMMARY | 2023-07-21 02:54 | XMS_ITS | Continuity of Care Document ---
Author Name Unknown Organization [facility] Address [address] [place] [address]- Care Team Providers Care Process Cheese Cooker Name Role Phone Sera KIM, Eloina Roberts Primary Care Physician Encounter [facility] [place] Date(s): 04/06/21 - 04/06/[address] [address]- Discharge Disposition: A-D/C Home Attending Physician: Jerrod Cantu MD Admitting Physician: Jerrod Cantu MD Referring Physician: Jerrod Cantu MD Allergies, Adverse Reactions, Alerts Substance Reaction [...] diphtheria-tetanus toxoids (DT) 10/16/03 Given 1Result Comment: [facility]: [id number] 2Result Comment: [facility]: [phone] 3Result Comment: FLU [facility] [phone] 4Result Comment: [08/03/2018] [facility] [id number] 5Result Comment: [id number] Medications amLODIPine 10 mg oral tablet See Instructions, TAKE 1 TABLET BY MOUTH EVERY DAY, # 90 tablet, 1 Refills, Maintenance, 01/30/21 12:53:00 EDT, [facility]/pharmacy #[id number], 155, cm, 01/02/21 11:19:00 EDT, Height Start Date: 01/30/21 Status: Ordered BLOOD PRESSURE MONITOR BLOOD PRESSURE MONITOR, See Instructions, # 1 each, Refills 0, Tot. Refills 0, Maintenance, DX: HYPERTENSION, 06/29/20 12:53:00 EDT, Supply Start Date: 06/29/20 Status: Ordered [employer] COVID-19 Vaccine preservative-free intramuscular suspension 0.5 mL, Intramuscular, Once, # 0.5 mL, 0 Refills, Soft Stop, 02/06/21 11:54:00 EDT, Suspension, [facility]/pharmacy #[id number], Partial fill upon patient request if the prescription is for a schedule II opioid drug., 0.5 mL Intramuscular Once, 155, cm, 02/06/21 1... Start Date: 02/06/21 Status: Ordered ketoconazole 2% topical cream 1 application, Topically, Daily, # 60 Gm, 0 Refills, Maintenance, 11/27/20 13:46:00 EST, Cream, [facility]/pharmacy #[id number], Partial fill upon patient request if the prescription is for a schedule II opioid drug., 1 application Topically Daily, 155, cm, ... Start Date: 11/27/20 Status: Ordered losartan 50 mg oral tablet 50 mg, 1, tablet, By Mouth, Daily, # 90 tablet, Refills 3, Tot. Refills 3, Maintenance, 02/06/21 11:55:00 EDT, Route to Pharmacy Electronically, [facility]/pharmacy #[id number], Partial fill upon patient request if the prescription is for a schedule II opioid drug... Start Date: 02/06/21 Stop Date: 02/01/22 Status: Ordered meloxicam 15 mg oral tablet 1 tablet, By Mouth, Daily, # 30 tablet, 0 Refills, Maintenance, 03/06/21 8:41:00 EDT, [facility] STORE [id number], 155, cm, 02/06/21 11:44:00 EDT, Height Start [...] Active Smoking(Confirmed) Active 1Left side - x-ray Procedures Procedure Date Related Diagnosis Body Site Status Colonoscopy and biopsy of colon 04/06/21 Completed Vital Signs Most recent to oldest [Reference Range]: 1 2 3 Height 153 cm (04/06/21 9:15 AM) Oxygen Saturation [94-100 %] 98 % (04/06/21 10:44 AM) 98 % (04/06/21 10:31 AM) 97 % (04/06/21 9:15 AM) Pulse Rate [55-90 bpm] 97 bpm *H* (04/06/21 9:15 AM) Blood Pressure [90-138/55-84 mm Hg] 102/66mm Hg (04/06/21 10:44 AM) 105/71mm Hg (04/06/21 10:31 AM) 121/79mm Hg (04/06/21 9:15 AM) Respiratory Rate [16-30 br/min] 18 br/min (04/06/21 10:44 AM) 18 br/min (04/06/21 10:31 AM) 18 br/min (04/06/21 9:15 AM) Temperature [96.8-100.4 DegF] 98.2 DegF (04/06/21 9:15 AM) Mode of Delivery (Oxygen) Room air (04/06/21 10:31 AM) Room air (04/06/21 9:15 AM) Blood pressure sites Arm, left (04/06/21 10:44 AM) Arm, left (04/06/21 10:31 AM) Arm, left (04/06/21 9:15 AM) Temperature Route Temporal (04/06/21 9:15 AM) Dry Weight 84 kg (04/06/21 9:15 AM) Social History Social History Type Response Tobacco Use: 4 or less cigar ettes(less than 1/4 pack)/day in last 30 days. Sex
--- OUTSIDE RECORDS SUMMARY | 2023-07-21 02:54 | XMS_ITS | Continuity of Care Document ---
Author Name Unknown Organization [facility] Adult Address [address] [place] [address]- Care Team Providers Care Supply Chain Associate Name Role Phone Sera KIM, Eloina Roberts Primary Care Physician [place] [facility] [place]12[place]20 - 09/19/20 [facility] Adult [address] [place] [address]- Attending Physician: Madi Hall MD Allergies, Adverse Reactions, Alerts Substance Reaction [...] diphtheria-tetanus toxoids (DT) 10/16/03 Given 1Result Comment: [facility]: [id number] 2Result Comment: FLU [facility] [id number] 3Result Comment: [08/03/2018] [facility] [id number] 4Result Comment: [id number] Medications BLOOD PRESSURE MONITOR BLOOD PRESSURE MONITOR, [...]
--- OUTSIDE RECORDS SUMMARY | 2023-07-21 02:54 | XMS_ITS | Continuity of Care Document ---
Author Name Unknown Organization [facility] Adult Address [address] [place] [address]- Care Team Providers Care C2 Tactical Analysis Technician Name Role Phone Sera KIM, Eloina Roberts Primary Care Physician [place] [facility] [place] 02/08/22 - 02/15/22 [facility] [address] [place] [address]- Encounter Diagnosis Abscess(Discharge Diagnosis) - 02/08/22 Elevated blood pressure reading(Discharge Diagnosis) - 02/11/22 Attending Physician: Eloina Zamora NP Allergies, Adverse [...] diphtheria-tetanus toxoids (DT) 10/16/03 Given 1Result Comment: [facility]# [id number] 2Result Comment: [facility]: [id number] 3Result Comment: FLU [facility] [id number] 4Result Comment: [08/03/2018] [facility] [id number] 5Result Comment: [id number] 6Result Comment: [facility]: [id number] Medications amLODIPine 10 mg oral tablet 1 tablet, By Mouth, Daily, # 90 tablet, 1 Refills, [id number], 153, cm, 08/10/21 10:40:00 EDT,Height, 84, kg, [...] capsule, 0 Refills, Maintenance, 02/08/22 9:13:00EDT, Capsule, [id number], Partial fill upon patient request if the prescription is for a schedule II opioid drug., 153, cm, 02/08/22 8:52:00 ED... Start Date: 02/08/22 Stop Date: 02/18/22 Status: Ordered hydroCHLOROthiazide 12.5 mg oral capsule 1 capsule = 12.5 mg, By Mouth, Daily, # 30 capsule, 1 Refills, Maintenance, 02/08/22 9:08:00 EDT, Capsule, [id number], Partial fill upon patient request if the prescription is for a schedule II opioid drug., 153, cm, 02/08/22 8:52:00 EDT, [facility]... Start Date: 02/08/22 Stop Date: 04/09/22 Status: Ordered [employer] COVID-19 Vaccine preservative-free intramuscular suspension 0.5 mL, [...] 02/06/21 11:55:00 EDT, [id number] fill upon patient request if the prescription is for a schedule II opioid drug... Start Date: 02/06/21 Stop Date: 02/01/22 Status: Ordered metFORMIN 500 mg oral tablet 1 tablet = 500 mg, By Mouth, 2 times a day, # 60 tablet, 11 Refills, Maintenance, 01/04/21 9:20:00 EDT, Tablet, [facility]/pharmacy #[id number], Partial fill upon patient request if the prescription is for a schedule II opioid drug., 155, cm, 01/02/21 11:19:00 EDT... Start Date: 01/04/21 Stop Date: 12/30/21 Status: Ordered omeprazole 20 mg oral delayed release tablet 1 tablet = 20 mg, By Mouth, Daily, # 30 tablet, 11 Refills, Maintenance, 08/10/21 10:37:00 EDT, [facility]/pharmacy #[id number], Partial fill upon patient request if the prescription is for a schedule II opioid drug., 153, cm, 08/10/21 10:10:00 EDT, Height, 84, kg... Start Date: 08/10/21 Stop Date: 08/05/22 Status: Ordered Problem List Condition Effective Dates [...] Dates Health Status Cl inical Service Informant Abscess Discharge Diagnosis 02/08/22 Elevated blood pressure reading Discharge Diagnosis 02/11/22 Vital Signs Most recent to oldest [Reference Range]: 1 2 3 Height 153 cm (02/08/22 9:17 AM) 153 cm (02/08/22 8:52 AM) 153 cm (02/08/22 8:42 AM) Weight 89.5 kg (02/08/22 8:42 AM) Oxygen Saturation [94-100 %] 91 % *L* (02/08/22 8:42 AM) Pulse Rate [55-90 bpm] 75 bpm (02/08/22 8:42 AM) Body Mass Index [18.5-24.99] 38.23 *>HHI* (02/08/22 8:42 AM) Blood Pressure [90-138/55-84 mm Hg] 148/86mm Hg *H* (02/08/22 9:17 AM) 144/84mm Hg *H* (02/08/22 8:52 AM) 161/91mm Hg *H* (02/08/22 8:42 AM) Temperature [96.8-100.4 DegF] 98 DegF (02/08/22 8:42 AM) Mode of Delivery (Oxygen) Room air (02/08/22 8:42 AM) Blood pressure sites Arm, left (02/08/22 9:17 AM) Arm, right (02/08/22 8:52 AM) Arm, right (02/08/22 8:42 AM) Temperature Route Temporal (02/08/22 8:42 AM) Weight Obtained Via Standing scale (02/08/22 8:42 AM) Social History Social History Type Response Tobacco Use: 4 or less cigar ettes(less than 1/4 pack)/day in last 30 days. Sex
--- OUTSIDE RECORDS SUMMARY | 2023-07-21 02:54 | XMS_ITS | Continuity of Care Document ---
Author Name Unknown Organization [facility] Adult Address [address] [place] [address]- Care Team Providers Care Human Resource Advisor Name Role Phone Sera KIM, Eloina Roberts Primary Care Physician [place] [facility] [place] 10[place]21 - 11/30/21 [facility] Adult [address] [place] [address]- Attending Physician: Roosevelt Bradshaw Admitting Physician: Roosevelt [...] diphtheria-tetanus toxoids (DT) 10/16/03 Given 1Result Comment: [facility]# [id number] 2Result Comment: [facility]: [id number] 3Result Comment: FLU [facility] [id number] 4Result Comment: [08/03/2018] [facility] [id number] 5Result Comment: [id number] 6Result Comment: [facility]: [id number] Medications amLODIPine 10 mg oral tablet 1 tablet, By Mouth, Daily, # 90 tablet, 1 Refills, [facility] STORE [facility]61, 153, cm, 08/10/21 10:40:00 EDT,Height, 84, kg, 04/06/21 9:15:00 EDT, Dry Weight Start Date: 08/16/21 Status: Ordered BLOOD PRESSURE MONITOR BLOOD PRESSURE MONITOR, See Instructions, # 1 each, Refills 0, Tot. Refills 0, Maintenance, DX: HYPERTENSION, 06/29/20 12:53:00 EDT, Supply Start Date: 06/29/20 Status: Ordered [employer] COVID-19 Vaccine preservative-free intramuscular suspension 0.5 mL, Intramuscular, Once, # 0.5 mL, 0 Refills, Soft Stop, 02/06/21 11:54:00 EDT, Suspension, [facility]/pharmacy #[id number], Partial fill upon patient request if the prescription is for a schedule II opioid drug., 0.5 mL Intramuscular Once, 155, cm, 02/06/21 1... Start Date: 02/06/21 Status: Ordered losartan 50 mg oral tablet 50 mg, 1, tablet, By Mouth, Daily, # 90 tablet, Refills 3, Tot. Refills 3, Maintenance, 02/06/21 11:55:00 EDT, Route to Pharmacy Electronically, [facility] tablet, 11 Refills, Maintenance, 08/10/21 10:37:00 EDT, [facility]/pharmacy #[id number], Partial fill upon patient request if the prescription is for a schedule II opioid drug., 153, cm, 08/10/21 10:10:00 EDT, Height, 84, kg... Start Date: 08/10/21 Stop Date: 08/05/22 Status: Ordered sulfamethoxazole-trimethoprim 800 mg-160 mg oral tablet 1 tablet, By Mouth, 2 times a day, # 20 tablet, 0 Refills, Maintenance, 10/31/21 14:53:00 EST, Tablet, [facility]/pharmacy #[id number], Partial [...]
--- OUTSIDE RECORDS SUMMARY | 2023-07-21 02:54 | XMS_ITS | Continuity of Care Document ---
Author Name Unknown Organization [facility] Adult Address [address] [place] [address]- Care Team Providers Care Record Searcher Name Role Phone Sera KIM, Eloina Roberts Primary Care Physician Encounter [facility] [place] Date(s): 09/04/20 - 10/04/20 [facility] Adult [address] [place] [address]- Allergies, Adverse Reactions, Alerts Substance Reaction Severity [...] diphtheria-tetanus toxoids (DT) 10/16/03 Given 1Result Comment: [facility]: [id number] 2Result Comment: FLU [facility] [phone] 3Result Comment: [08/03/2018] [facility] [id number] 4Result Comment: [id number] Medications BLOOD PRESSURE MONITOR BLOOD PRESSURE MONITOR, [...]
--- OUTSIDE RECORDS SUMMARY | 2023-07-21 02:54 | XMS_ITS | Continuity of Care Document ---
Author Name Unknown Organization [facility] Adult Address [address] [place] [address]- Care Team Providers Care Technical Business Analyst Name Role Phone Sera KIM, Eloina Roberts Primary Care Physician [place] [facility] [place] 07/02/21 [facility] Adult [address] [place] [address]- Attending Physician: Suzanne Yi MD Allergies, Adverse Reactions, Alerts Substance Reaction [...] diphtheria-tetanus toxoids (DT) 10/16/03 Given 1Result Comment: [facility]: [id number] 2Result Comment: [place]: [id number] 3Result Comment: FLU [facility] [phone] 4Result Comment: [08/03/2018] [facility] [id number] 5Result Comment: [id number] Medications amLODIPine 10 mg oral tablet See Instructions, TAKE 1 TABLET BY MOUTH EVERY DAY, # 90 tablet, 1 Refills, Maintenance, 01/30/21 12:53:00 EDT, [facility]/pharmacy #[id number], 155, cm, 01/02/21 11:19:00 EDT, Height Start Date: 01/30/21 Status: Ordered BLOOD PRESSURE MONITOR BLOOD PRESSURE MONITOR, See Instructions, # 1 each, Refills 0, Tot. Refills 0, Maintenance, DX: HYPERTENSION, 06/29/20 12:53:00 EDT, Supply Start Date: 06/29/20 Status: Ordered [employer] COVID-19 Vaccine preservative-free intramuscular suspension 0.5 mL, Intramuscular, Once, # 0.5 mL, 0 Refills, Soft Stop, 02/06/21 11:54:00 EDT, Suspension, [facility]/pharmacy #[id number], Partial fill upon patient request if the prescription is for a schedule II opioid drug., 0.5 mL Intramuscular Once, 155, cm, 02/06/21 1... Start Date: 02/06/21 Status: Ordered ketoconazole 2% topical cream 1 application, Topically, Daily, # 60 Gm, 0 Refills, Maintenance, 11/27/20 13:46:00 EST, Cream, [facility]/pharmacy #[id number], Partial fill upon patient request if the prescription is for a schedule II opioid drug., 1 application Topically Daily, 155, cm, ... Start Date: 11/27/20 Status: Ordered losartan 50 mg oral tablet 50 mg, 1, tablet, By Mouth, Daily, # 90 tablet, Refills 3, Tot. Refills 3, Maintenance, 02/06/21 11:55:00 EDT, Route to Pharmacy Electronically, [facility]/pharmacy #[id number], Partial fill upon patient request if the prescription is for a schedule II opioid drug... Start Date: 02/06/21 Stop Date: 02/01/22 Status: Ordered meloxicam 15 mg oral tablet 1 tablet, By Mouth, Daily, # 30 tablet, 0 Refills, Maintenance, 03/06/21 8:41:00 EDT, [facility] STORE 10205, 155, cm, 02/06/21 11:44:00 EDT, Height Start Date: 03/06/21 Status: Ordered metFORMIN 500 mg oral tablet 1 tablet = 500 mg, By Mouth, 2 times a day, # 60 tablet, 11 Refills, Maintenance, 01/04/21 9:20:00 EDT, Tablet, [facility]/pharmacy #[id number], Partial fill upon patient [...]
--- OUTSIDE RECORDS SUMMARY | 2023-07-21 02:54 | XMS_ITS | Continuity of Care Document ---
Author Name Unknown Organization [facility] Address [address] [place] [address]- Care Team Providers Care Retail Pharmacist Name Role Phone Sera KIM, Eloina Roberts Primary Care Physician [place] [facility] [place]): [place] - 02/09/20 [facility] [address] [place] [address] [facility] Attending Physician: Karol CARPIO, Richelle Eugene Referring Physician: Eloina Zamora NP Allergies, Adverse Reactions, [...] toxoids (DT) 10/16/03 Given 1Result Comment: FLU [facility] [id number] 2Result Comment: [08/03/2018] [facility] [id number] 3Result Comment: [id number] Medications amLODIPine 5 mg oral tablet 5 mg, 1, tablet, By Mouth, Daily, # 30 tablet, Refills 6, Tot. Refills 6, Maintenance, 10/19/19 11:58:00 EST, Route to Pharmacy Electronically, [facility]/pharmacy #[id number], 155, cm, 10/19/19 11:56:00 EST, Height Start Date: 10/19/19 Stop Date: 05/16/20 Status: Ordered losartan 100 mg oral tablet 1 tablet = 100 mg, By Mouth, Daily, # 30 tablet, 6 Refills, Maintenance, 10/19/19 11:52:00 EST, Tablet, [facility]/pharmacy #[id number], 155, cm, 10/19/19 11:24:00 EST, [...]
--- OUTSIDE RECORDS SUMMARY | 2023-07-21 02:54 | XMS_ITS | Continuity of Care Document ---
Author Name Unknown Organization [facility] Adult Address [address] [place] [phone]- Care Team Providers Care Dicer Machine Operator Name Role Phone Sera KIM, Eloina Roberts Primary Care Physician Encounter [facility] Date(s): 11/27/20 - 12/04/[address] [address]- Encounter Diagnosis Skin pimple(Discharge Diagnosis) - 11/27/20 Pimples(Discharge Diagnosis) - 11/27/20 Candidiasis(Discharge Diagnosis) - 11/27/20 Attending Physician: Eloina Zamora NP Allergies, Adverse [...] (DT) 10/16/03 Given 1Result Comment: [facility]: [id number] 2Result Comment: FLU [facility] [id number] 3Result Comment: [08/03/2018] [facility] [id number] 4Result Comment: [id number] Medications BLOOD PRESSURE MONITOR BLOOD PRESSURE MONITOR, See Instructions, # 1 each, Refills 0, Tot. Refills 0, Maintenance, DX: HYPERTENSION, 06/29/20 12:53:00 EDT, Supply Start Date: 06/29/20 Status: Ordered ketoconazole 2% topical cream 1 application, Topically, Daily, # 60 Gm, 0 Refills, Maintenance, 11/27/20 13:46:00 EST, Cream, [id number], Partial fill upon patient request if the prescription is for a schedule II opioid drug., 1 application Topically Daily, 155, cm, ... Start Date: 11/27/20 Status: Ordered Problem List Condition Effective Dates Status Health Status Inform ant Anemia(Confirmed) Active Benign paroxysmal positional vertigo(Confirmed) Active Heel spur(Confirmed) 1 12/25/17 Active Cardiomyopathy - . Resolved 06(Confirmed) Active High blood pressure(Confirmed) Active Dyspepsia(Confirmed) Active Recurrent ventral incisional hernia(Confirmed) Active Smoking(Confirmed) Active 1Left side - x-ray Diagnosis Diagnosis Type Effective Dates Health Status Clini doni Service Informant Skin pimple Discharge Diagnosis 11/27/20 Pimples Discharge Diagnosis 11/27/20 Candidiasis Discharge Diagnosis 11/27/20 Vital Signs Most recent to oldest [Reference Range]: 1 Height 155 cm (11/27/20 1:02 PM) Social History Social History Type Response Tobacco Use: 4 or less cigar ettes(less than 1/4 pack)/day in last 30 days. Sex
--- OUTSIDE RECORDS SUMMARY | 2023-07-21 02:54 | XMS_ITS | Continuity of Care Document ---
Author Name Unknown Organization [facility] Adult Address [address] [place] [phone]- Care Team Providers Care Log Cut Off Sawyer Name Role Phone Eloina Zamora NP Primary Care Physician Encounter [facility] Date(s): 06/29/20 - 07/06/[address] [address] Encounter Diagnosis Anemia(Discharge Diagnosis) - 06/29/20 Benign paroxysmal positional vertigo(Discharge Diagnosis) - 06/29/20 Cardiomyopathy - . Resolved 06(Discharge Diagnosis) - 06/29/20 Dyspepsia(Discharge Diagnosis) - 06/29/20 High blood pressure(Discharge Diagnosis) - 06/29/20 Smoking(Discharge Diagnosis) - 06/29/20 Right knee pain(Discharge Diagnosis) - 06/29/20 Attending Physician: Eloina Zamora NP Allergies, Adverse [...] toxoids (DT) 10/16/03 Given 1Result Comment: FLU [facility] 05253-055-92 2Result Comment: [08/03/2018] [facility] [id number] 3Result Comment: [id number] Medications BLOOD PRESSURE MONITOR BLOOD PRESSURE MONITOR, [...] Effective Dates Health Status Clinical Service Informant Anemia Discharge Diagnosis 06/29/20 Benign paroxysmal positional vertigo Discharge Diagnosis 06/29/20 Cardiomyopathy - . Resolved 06 Discharge Diagnosis 06/29/20 Dyspepsia Discharge Diagnosis 06/29/20 High blood pressure Discharge Diagnosis 06/29/20 Smoking Discharge Diagnosis 06/29/20 Right knee pain Discharge Diagnosis 06/29/20 Vital Signs Most recent to oldest [Reference Range]: 1 2 Height 155 cm (06/29/20 12:11 PM) 155 cm (06/29/20 11:40 AM) Weight 87.4 kg (06/29/20 11:40 AM) Oxygen Saturation [94-100 %] 100 % (06/29/20 11:40 AM) Pulse Rate [55-90 bpm] 80 bpm (06/29/20 11:40 AM) Body Mass Index [18.5-24.99] 36.38 *>HHI* (06/29/20 11:40 AM) Blood Pressure [90-138/55-84 mm Hg] 144/ 88mm Hg *H* (06/29/20 12:11 PM) 136/72mm Hg (06/29/20 11:40 AM) Temperature [96.8-100.4 DegF] 98.3 DegF (06/29/20 11:40 AM) Mode of Delivery (Oxygen) Room air (06/29/20 11:40 AM) Blood pressure sites Arm, left (06/29/20 12:11 PM) Arm, left (06/29/20 11:40 AM) Temperature Route Oral (06/29/20 11:40 AM) Social History Social History Type Response Tobacco Use: 4 or less cigar ettes(less than 1/4 pack)/day in last 30 days. Sex
--- OUTSIDE RECORDS SUMMARY | 2023-07-21 02:54 | XMS_ITS | Continuity of Care Document ---
Author Name Unknown Organization [facility] Adult Address [address] [place] [phone]- Care Team Providers Care Radio Intelligence Operator Name Role Phone Eloina Zamora NP Primary Care Physician Encounter [facility] Date(s): 05/06/23 - 05/13/23 [facility] Adult [address] [place] [phone]- Encounter Diagnosis Anemia(Discharge Diagnosis) - 05/06/23 Benign paroxysmal positional vertigo(Discharge Diagnosis) - 05/06/23 Cardiomyopathy - . Resolved 06(Discharge Diagnosis) - 05/06/23 Diabetes(Discharge Diagnosis) - 05/06/23 Dyspepsia(Discharge Diagnosis) - 05/06/23 Hypertension(Discharge Diagnosis) - 05/06/23 Smoking(Discharge Diagnosis) - 05/06/23 Ventral hernia(Discharge Diagnosis) - 05/06/23 Attending Physician: Eloina Zamora NP Allergies, Adverse Reactions, Alerts Substance Reaction Severity Status lisinopril cough Active Immunizations Given and Recorded Vaccine Date Status Refusal Reason influenza virus vaccine, inactivated 1 10/23/22 Gi breann influenza virus vaccine, inactivated 2 08/10/21 Gi breann influenza virus vaccine, inactivated 3 09/12/20 Gi breann influenza virus vaccine, inactivated 4 10/19/19 Gi breann influenza virus vaccine, inactivated 5 08/03/18 Gi breann influenza virus vaccine, inactivated 6 08/13/17 Gi breann influenza virus vaccine, inactivated 08/12/16 Give n influenza virus vaccine, inactivated 08/12/16 Give n influenza virus vaccine, inactivated 07/21/15 Give n influenza virus vaccine, inactivated 12/01/14 Eleno rded SARS-CoV-2 (COVID-19) Ad26 vaccine 7 02/06/21 Give n tetanus/diphtheria/pertussis, acel(Tdap) 11/8/17 Given pneumococcal 23-valent vaccine 12/01/14 Recorded diphtheria-tetanus toxoids (DT) 10/16/03 Given 1Result Comment: [facility]# [id number] 2Result Comment: [facility]# [id number] 3Result Comment: [facility]: [id number] 4Result Comment: FLU [facility] [id number] 5Result Comment: [08/03/2018] [facility] [id number] 6Result Comment: [id number] 7Result Comment: [facility]: [id number] Medications amLODIPine 10 mg oral tablet 1 tablet, By Mouth, Daily, for 90 days, # 90 tablet, 3 Refills, Physician Stop 10/18/23 11:08:00 EST, 10/23/22 11:08:00 EST, [facility]/pharmacy #[id number], 153, cm, 10/23/22 10:24:00 EST, Height, 84, kg, 04/06/21 9:15:00 EDT, Dry Weight Start Date: 10/23/22 Stop Date: 10/18/23 Status: Ordered BLOOD PRESSURE MONITOR BLOOD PRESSURE MONITOR, See Instructions, # 1 each, Refills 0, Tot. Refills 0, Maintenance, Use to monitor blood pressure DX: HYPERTENSION, 07/09/22 9:12:00 EDT, Supply Start Date: 07/09/22 Status: Ordered hydrochlorothiazide 25 mg oral tablet 25 mg, 1, tablet, By Mouth, Daily, # 90 tablet, Refills 3, Tot. Refills 3, Maintenance, 10/23/22 11:08:00 EST, Route to Pharmacy Electronically, [facility]/pharmacy #[id number], Partial fill upon patient request if the prescription is for a schedule II opioid drug... Start Date: 10/23/22 Stop Date: 10/18/23 Status: Ordered Brandon COVID-19 Vaccine preservative-free intramuscular [...] tablet, Refills 3, Tot. Refills 3, Maintenance, 10/23/22 11:08:00 EST, [id number] Partial fill upon patient request if the prescription is for a schedule II opioid drug... Start Date: 10/23/22 Stop Date: 10/18/23 Status: Ordered meclizine 25 mg oral tablet 1 tablet = 25 mg, By Mouth, 3 times a day, PRN for dizziness, # 21 tablet, 0 Refills, Maintenance, 05/06/23 12:28:00 EDT, Tablet, [facility]/pharmacy #[id number], Partial fill upon patient request if the prescription is for a schedule II opioid drug., 153, cm, ... Start Date: 05/06/23 Stop Date: 05/13/23 Status: Ordered Meloxicam Daily, 0 Refills, Maintenance, 07/09/22 8:54:00 EDT, Partial fill upon patient request if the prescription is for a schedule II opioid drug. Start Date: 07/09/22 Status: Ordered metFORMIN 500 mg oral tablet 1 tablet = 500 mg, By Mouth, 2 times a day, # 60 tablet, 11 Refills, Maintenance, 01/04/21 9:20:00 EDT, Tablet, [facility]/pharmacy #[id number], Partial fill upon patient request if the prescription is for a schedule II opioid drug., 155, cm, 01/02/21 11:19:00 EDT... Start Date: 01/04/21 Stop Date: 12/30/21 Status: Ordered omeprazole 20 mg oral delayed release tablet 1 tablet = 20 mg, By Mouth, Daily, # 30 tablet, 11 Refills, Maintenance, 04/23/22 11:47:00 EDT, [facility]/pharmacy #[id number], Partial fill upon patient request if the prescription is for a schedule II opioid drug., 153, cm, 04/23/22 11:21:00 EDT, Height, 84, kg... Start Date: 04/23/22 Stop Date: 04/18/23 Status: Ordered triamcinolone 0.5% topical cream 1 application, Topically, 2 times a day, # 30 Gm, 2 Refills, Maintenance, 05/06/23 12:26:00 EDT, Cream, [id number], Partial fill upon patient request if the prescription is for a schedule II opioid drug., 1 application Topically 2 times a day,... Start Date: 05/06/23 Status: Ordered Vitamin D3 50,000 intl units oral capsule 1 capsule, By Mouth, Every week, # 13 capsule, 0 Refills, Maintenance, 02/07/23 11:01:00 EDT, [id number], 153, cm, 10/23/22 10:24:00 EST, Height, 84, kg, 04/06/21 9:15:00 EDT, Dry Weight Start Date: 02/07/23 Status: Ordered Problem List Condition Confirmation Course Effective Dates Status H ealth Status Informant Anemia Confirmed Active Benign paroxysmal positional vertigo Confirmed Active Heel spur 1 Confirmed 12/25/17 Active Cardiomyopathy - . Resolved 06 Confirmed Active Diabetes Confirmed Active High blood pressure Confirmed Active Hypertension Confirmed Active Dyspepsia Confirmed Active Recurrent ventral incisional hernia Confirmed Active Severe obesity (BMI 35.0-39.9) with comorbidity Confirmed Active Smoking Confirmed Active 1Left side - x-ray Diagnosis Diagnosis Type Effective Dates Health Status Clinical Service Informant Anemia Discharge Diagnosis 05/06/23 Benign paroxysmal positional vertigo Discharge Diagnosis 05/06/23 Cardiomyopathy - . Resolved 06 Discharge Diagnosis 05/06/23 Diabetes Discharge Diagnosis 05/06/23 Dyspepsia Discharge Diagnosis 05/06/23 Hypertension Discharge Diagnosis 05/06/23 Smoking Discharge Diagnosis 05/06/23 Ventral hernia Discharge Diagnosis 05/06/23 Vital Signs Most recent to oldest [Reference Range]: 1 2 Height 153 cm (05/06/23 12:31 PM) 153 cm (05/06/23 11:49 AM) Weight 87.8 kg (05/06/23 11:49 AM) Oxygen Saturation [94-100 %] 94 % (05/06/23 11:49 AM) Pulse Rate [55-90 bpm] 82 bpm (05/06/23 11:49 AM) Body Mass Index [18.5-24.99 kg/m2] 37.51 kg/m2 *>HHI* (05/06/23 11:49 AM) Blood Pressure [90-138/55-84 mm Hg] 138/ 76mm Hg (05/06/23 12:31 PM) 138/83mm Hg (05/06/23 11:49 AM) Temperature [96.8-100.4 DegF] 98.3 DegF (05/06/23 11:49 AM) Mode of Delivery (Oxygen) Room air (05/06/23 11:49 AM) Blood pressure sites Arm, left (05/06/23 12:31 PM) Arm, left (05/06/23 11:49 AM) Temperature Route Temporal (05/06/23 11:49 AM) Weight Obtained Via Standing scale (05/06/23 11:49 AM) Social History Social History Type Response Tobacco Use: 4 or less cigar ettes(less than 1/4 pack)/day in last 30 days. Sex Note * Paulette Truong: PERFORM, SIGN, VERIFY Event Display: Patient Education/Instruction Authored Date: [id number] [facility] *[facility] [place] [facility] Clinical Summary Name MAHESH RUELAS Age 53 Years 1970 PCP Sera KIM, Eloina Roberts PCP Visit Date 05/06/2023 11:39:00 Additional Instructions: Physical after 10/23/23 Scheduled Appointments?? Future Appointments ?No Future Appointments Scheduled Follow-Up Instructions ?? Diagnosis Benign paroxysmal vertigo, unspecified ear; Type 2 diabetes mellitus without complications; Functional dyspepsia; Tobacco use; Essential (primary) hypertension; Anemia, unspecified; Cardiomyopathy, unspecified Medications: Please continue your medications until treatment is completed or stopped by your provider. Discuss any questions related to medications with your provider. New Medications [id number], [address] [place], [place] [phone], [phone] Triamcinolone Topical (triamcinolone 0.5% topical cream) 1 johanne Topically twice a day. Refills: 2. Next Dose: Medications to Continue with No Changes [id number], [address] [place], [place] [phone], [phone] Meclizine (meclizine 25 mg oral tablet) 1 tab(s) Oral 3 times a day as needed for dizziness for 7 Days. Refills: 0. Next Dose: These medications were not printed or sent to your pharmacy Amlodipine (amLODIPine 10 mg oral tablet) 1 tab(s) Oral Daily for 90 Days. Refills: 3. Next Dose: Cholecalciferol (Vitamin D3 50,000 intl units oral capsule) 1 capsule Oral every week. Refills: 0. Next Dose: Durable Medical Equipment (BLOOD PRESSURE MONITOR) Use to monitor blood pressure DX: HYPERTENSION. Refills: 0. Next Dose: Hydrochlorothiazide (hydrochlorothiazide 25 mg oral tablet) 1 tab(s) Oral Daily for 90 Days. Refills: 3. Next Dose: Losartan (losartan 50 mg oral tablet) 1 tab(s) Oral Daily for 90 Days. Refills: 3. Next Dose: Meloxicam Daily. Next Dose: Metformin (metFORMIN 500 mg oral tablet) 1 tab(s) Oral twice a day for 30 Days. Refills: 11. Next Dose: Omeprazole (omeprazole 20 mg oral delayed release tablet) 1 tab(s) Oral Daily for 30 Days. Refills:11. Next Dose: SARS-CoV-2 (COVID-19) Ad26 vaccine (Brandon COVID-19 Vaccine preservative-free intramuscular suspension) 0.5 Milliliter Intramuscular once. Refills: 0. Next Dose: Allergy Info:?? lisinopril Medications Given This Visit Future Orders ?No future orders Vital Signs Height 153 cm Weight 87.8 kg BMI 37.51 kg/m2 Blood Pressure 138 mm Hg/76 mm Hg Temperature 98.3 DegF Pulse Rate 82 bpm Respiratory Rate 02 Sat Mode of Delivery 94 %/Room air You can now view a summary of your hospital visit from the comfort of your home through a free online portal called [employer]. [employer] is a website that allows you to securely view your medical information including discharge summary, medications and follow-up visits. ??You can alsosend a secure electronic message to your doctor???s office to request appointments, renew medications or just ask a question. You can enroll at [email or web address] or register during your next office visit. Disclaimer:?? The information provided is of a general nature and is intended to be used in conjunction with the recommendations and advice of your health care practitioner. ??Every effort has been made to ensure that the information provided is accurate and complete at the time it is provided to you however, as your needs change, or, as new ??information becomes available, different or additional instructions may be required. If you have questions, please consult with your primary care provider or pharmacist, as appropriate. ??This information is not intended to serve as substitution for assessment and evaluation by a qualified health care provider. If you do not have a primary care provider, you may find a [facility] provider by calling [facility] [employer] [facility] at [phone]. For information about the plan of care including goals and instructions for your diagnosis, please see the patient education orders section of this document. Patient Education Materials?? The content of this educational material or handout may have been modified, supplemented, or adapted from its original content and format to support your individualized medical care. Patient Care team information Care Team Personnel Name: Eloina Zamora NP Position: S PCO Associate Professional Member Role: PCP Address: Address: [address] [place] [address]- [place] Name: Matt Cordero MD Position: [facility] Renal MD Member Role: Lifetime Consulting Physician Address: Address: [address] [place] [address] [facility] [place] [address]- Care Team Related Persons Name: PORSCHE VALENCIA Address: home [address] [place] [address] Name: TRENTON VALENCIA Address: home [address] [place] [address] Name: JEFFERY BOYKIN
--- OUTSIDE RECORDS SUMMARY | 2023-07-21 02:54 | XMS_ITS | Continuity of Care Document ---
Author Name Unknown Organization [facility] Adult Address [address] [place] [id number]- Care Team Providers Care Processor Inspector Name Role Phone Sera KIM, Eloina Roberts Primary Care Physician Encounter [facility] Date(s): 10/31/21 - 11/07/21 [facility] Adult [address] [place] [address]- Encounter Diagnosis Abdominal wall cellulitis(Discharge Diagnosis) - 10/31/21 High blood pressure(Discharge Diagnosis) - 10/31/21 Attending Physician: Paolo Dominguez MD Allergies, Adverse [...] diphtheria-tetanus toxoids (DT) 10/16/03 Given 1Result Comment: [facility]# [id number] 2Result Comment: [facility]: [id number] 3Result Comment: FLU [facility] [id number] 4Result Comment: [08/03/2018] [facility] [id number] 5Result Comment: [id number] 6Result Comment: [facility]: [id number] Medications amLODIPine 10 mg oral tablet 1 tablet, By Mouth, Daily, # 90 tablet, 1 Refills, [id number], 153, cm, 08/10/21 10:40:00 EDT,Height, 84, kg, 04/06/21 9:15:00 EDT, Dry Weight Start Date: 08/16/21 Status: Ordered BLOOD PRESSURE MONITOR BLOOD PRESSURE MONITOR, See Instructions, # 1 each, Refills 0, Tot. Refills 0, Maintenance, DX: HYPERTENSION, 06/29/20 12:53:00 EDT, Supply Start Date: 06/29/20 Status: Ordered ibuprofen 600 mg oral tablet 600 mg, 1, tablet, By Mouth, Every 8 hours, PRN, for 10 days, # 30 tablet, Refills 0, Tot. Refills 0, Acute 11/10/21 14:54:00 EST, Pain , Moderate, 10/31/21 14:54:00 EST, Route to Pharmacy Electronically, [facility]/pharmacy #[id number], Partial fill upon patient... Start Date: 10/31/21 Stop Date: 11/10/21 Status: Ordered [employer] COVID-19 Vaccine preservative-free intramuscular suspension 0.5 mL, Intramuscular, Once, # 0.5 mL, 0 Refills, Soft Stop, 02/06/21 11:54:00 EDT, Suspension, [facility]/pharmacy #[id number], Partial fill upon patient request if the prescription is for a schedule II opioid drug., 0.5 mL Intramuscular Once, 155, cm, 02/06/21 1... Start Date: 02/06/21 Status: Ordered losartan 50 mg oral tablet 50 mg, 1, tablet, By Mouth, Daily, # 90 tablet, Refills 3, Tot. Refills 3, Maintenance, 02/06/21 11:55:00 EDT, Route to Pharmacy Electronically, [facility]/pharmacy #[id number], Partial fill upon patient request if [...] tablet, 11 Refills, Maintenance, 08/10/21 10:37:00 EDT, [id number], Partial fill upon patient request if the prescription is for a schedule II opioid drug., 153, cm, 08/10/21 10:10:00 EDT, Height, 84, kg... Start Date: 08/10/21 Stop Date: 08/05/22 Status: Ordered sulfamethoxazole-trimethoprim 800 mg-160 mg oral tablet 1 tablet, By Mouth, 2 times a day, # 20 tablet, 0 Refills, Maintenance, 10/31/21 14:53:00 EST, Tablet, [id number], Partial fill upon patient [...] Effective Dates Health Status Clinical Service Informant Abdominal wall cellulitis Discharge Diagnosis 10/31/21 High blood pressure Discharge Diagnosis 10/31/21 Vital Signs Most recent to oldest [Reference Range]: 1 2 Height 153 cm (10/31/21 2:32 PM) 153 cm (10/31/21 2:24 PM) Weight 88 kg (10/31/21 2:24 PM) Oxygen Saturation [94-100 %] 99 % (10/31/21 2:24 PM) Pulse Rate [55-90 bpm] 89 bpm (10/31/21 2:24 PM) Body Mass Index [18.5-24.99] 37.59 *>HHI* (10/31/21 2:24 PM) Blood Pressure [90-138/55-84 mm Hg] 158/ 66mm Hg *H* (10/31/21 2:32 PM) 159/64mm Hg *H* (10/31/21 2:24 PM) Mode of Delivery (Oxygen) Room air (10/31/21 2:24 PM) Blood pressure sites Arm, left (10/31/21 2:32 PM) Arm, left (10/31/21 2:24 PM) Weight Obtained Via Standing scale (10/31/21 2:24 PM) Social History Social History Type Response Tobacco Use: 4 or less cigar ettes(less than 1/4 pack)/day in last 30 days. Sex
--- OUTSIDE RECORDS SUMMARY | 2023-07-21 02:54 | XMS_ITS | Continuity of Care Document ---
Author Name Unknown Organization [facility] Adult Address [address] [place] [address]- Care Team Providers Care Toll Testboard Worker Name Role Phone Sera KIM, Eloina Roberts Primary Care Physician Encounter [facility] Date(s): 11/02/22 - 12/02/22 [facility] Adult [address] [place] [address]- Allergies, Adverse Reactions, Alerts Substance Reaction Severity [...] vaccine 7 02/06/21 Give n tetanus/diphtheria/pertussis, acel(Tdap) 08/13/17 Given pneumococcal 23-valent vaccine 12/01/14 Recorded diphtheria-tetanus toxoids (DT) 10/16/03 Given 1Result Comment: [facility]# 47012-787-08 2Result Comment: [facility]# 93174-523-17 3Result Comment: [facility]: [id number] 4Result Comment: FLU [facility] [id number] 5Result Comment: [08/03/2018] [facility] [id number] 6Result Comment: [id number] 7Result Comment: [facility]: 52879-929-35 Medications amLODIPine 10 mg oral tablet 1 tablet, By Mouth, Daily, for 90 days, # 90 tablet, 3 Refills, Physician Stop 10/18/23 11:08:00 EST, 10/23/22 11:08:00 EST, [facility]/pharmacy #[id number], 153, cm, 10/23/22 10:24:00 EST, Height, [...] 10/23/22 11:08:00 EST, Route to Pharmacy Electronically, [facility]/pharmacy #[id number], Partial fill upon patient request if the prescription is for a schedule II opioid drug... Start Date: 10/23/22 Stop Date: 10/18/23 Status: Ordered [employer] COVID-19 Vaccine preservative-free intramuscular suspension 0.5 mL, Intramuscular, Once, # 0.5 mL, 0 Refills, Soft Stop, 02/06/21 11:54:00 EDT, Suspension, [facility]/pharmacy #[id number], Partial fill upon patient request if the prescription is for a schedule II opioid drug., 0.5 mL Intramuscular Once, 155, cm, 02/06/21 1... Start Date: 02/06/21 Status: Ordered losartan 50 mg oral tablet 50 mg, 1, tablet, By Mouth, Daily, # 90 tablet, Refills 3, Tot. Refills 3, Maintenance, 10/23/22 11:08:00 EST, Route to Pharmacy Electronically, [facility]/pharmacy #[id number], Partial fill upon patient request if the prescription is for a schedule II opioid drug... Start Date: 10/23/22 Stop Date: 10/18/23 Status: Ordered meclizine 25 mg oral tablet 1 tablet = 25 mg, By Mouth, 3 times a day, PRN for dizziness, # 21 tablet, 0 Refills, Maintenance, 07/09/22 9:03:00 EDT, Tablet, [id number], Partial fill upon patient request if the prescription is for a schedule II opioid drug., 153, cm, ... Start Date: 07/09/22 Stop Date: 07/16/22 Status: Ordered Meloxicam Daily, 0 Refills, Maintenance, [...] tablet, 11 Refills, Maintenance, 04/23/22 11:47:00 EDT, [id number], Partial fill upon patient request if the prescription is for a schedule II opioid drug., 153, cm, 04/23/22 11:21:00 EDT, Height, 84, kg... Start Date: 04/23/22 Stop Date: 04/18/23 Status: Ordered Vitamin D3 50,000 intl units oral capsule 1 capsule = 1,250 mcg, By Mouth, Every week, # 13 capsule, 0 Refills, Maintenance, 11/06/22 11:16:00 EST, Capsule, [id number], Partial fill upon patient request if the prescription is for a schedule II opioid drug., 153, cm, 10/23/22 10:24:00... Start Date: 11/06/22 Stop Date: 02/04/23 Status: Ordered Problem List Condition Confirmation Course Effective Dates Status H ealth Status Informant Anemia Confirmed Active Benign paroxysmal positional vertigo Confirmed Active Heel spur 1 Confirmed 3/22/18 Active Cardiomyopathy - . Resolved 06 Confirmed Active Diabetes Confirmed Active High blood pressure Confirmed Active Hypertension Confirmed Active Dyspepsia Confirmed Active Recurrent ventral incisional hernia Confirmed Active Severe obesity (BMI 35.0-39.9) with comorbidity Confirmed Active Smoking Confirmed Active 1Left side - x-ray Social History Social History Type Response Tobacco Use: 4 or less cigar ettes(less than 1/4 pack)/day in last 30 days. Sex Patient Care team information Care Team Personnel Name: Sera KIM, Eloina Roberts Position: [facility] PCO Associate Professional Member Role: PCP Address: Address: [address] [place] [address] [address] [place] [address]- Name: Matt Cordero MD Position: [facility] Renal MD Member Role: Lifetime Consulting Physician Address: Address: [address] [place] [address] [facility] [place] [address]- Care Team Related Persons Name: PORSCHE VALENCIA Address: home [address] [place] [address] Name: TRENTON VALENCIA Address: home [address] [place] [address] Name: JEFFERY BOYKIN
--- OUTSIDE RECORDS SUMMARY | 2023-07-21 02:54 | XMS_ITS | Continuity of Care Document ---
Author Name Unknown Organization [facility] Address [address] [place] [address]- Care Team Providers Care Diver'S Tender Name Role Phone Sera KIM, Eloina Roberts Primary Care Physician Encounter [facility] Date(s): 12/20/20 - 01/19/21 [facility] [address] [place] [address]- Allergies, Adverse Reactions, Alerts Substance Reaction Severity [...] diphtheria-tetanus toxoids (DT) 10/16/03 Given 1Result Comment: [facility]: [id number] 2Result Comment: FLU [facility] [id number] 3Result Comment: [08/03/2018] [facility] [id number] 4Result Comment: [id number] Medications amLODIPine 10 mg oral tablet 1 tablet = 10 mg, By Mouth, Daily, # 30 tablet, 0 Refills, Maintenance, 01/02/21 11:14:00 EDT, Tablet, [id number], Partial fill upon patient request if the prescription is for a schedule II opioid drug., 155, cm, 01/02/21 10:46:00 EDT, Height Start Date: 3/30/21 Stop Date: 02/01/21 Status: Ordered BLOOD PRESSURE MONITOR BLOOD PRESSURE MONITOR, See Instructions, # 1 each, Refills 0, Tot. Refills 0, Maintenance, DX: HYPERTENSION, 06/29/20 12:53:00 EDT, Supply Start Date: 06/29/20 Status: Ordered ketoconazole 2% topical cream 1 application, Topically, Daily, # 60 Gm, 0 Refills, Maintenance, 11/27/20 13:46:00 EST, Cream, [facility]/pharmacy #[id number], Partial fill upon patient request if the prescription is for a schedule II opioid drug., 1 application Topically Daily, 155, cm, ... Start Date: 11/27/20 Status: Ordered losartan 50 mg oral tablet 50 mg, 1, tablet, By Mouth, Daily, # 30 tablet, Refills 6, Tot. Refills 6, Maintenance, 12/15/20 8:44:00 EST, Route to Pharmacy Electronically, [facility]/pharmacy #[id number], Partial fill upon patient request if the prescription is for a schedule II opioid drug.... Start Date: 12/15/20 Stop Date: 07/13/21 Status: Ordered meloxicam 15 mg oral tablet 1 tablet = 15 mg, By Mouth, Daily, # 30 tablet, 0 Refills, Maintenance, 01/02/21 11:29:00 EDT, Tablet, [facility]/pharmacy #[id number], Partial fill upon patient request if the prescription is for a schedule II opioid drug., 155, cm, 01/02/21 11:19:00 EDT, Height Start Date: 01/02/21 Stop Date: 02/01/21 Status: Ordered metFORMIN 500 mg oral tablet 1 tablet = 500 mg, By Mouth, 2 times a day, # 60 tablet, 11 Refills, Maintenance, 01/04/21 9:20:00 EDT, Tablet, [facility]/pharmacy #[id number], Partial fill upon patient request if [...] EDT, 04/05/21 17:00:00 EDT, REC Powder, [id number], test date 04/06/21, 240 mL By Mouth... [...]
--- OUTSIDE RECORDS SUMMARY | 2023-07-21 02:55 | XMS_ITS | Continuity of Care Document ---
Author Name Unknown Organization [facility] Adult Address [address] [place] [address]- Care Team Providers Care Complaint Adjuster Name Role Phone Sera KIM, Eloina Roberts Primary Care Physician Encounter [facility] Date(s): 01/02/21 - 01/09/[address] [facility] Adult [address] [place] [address]- Encounter Diagnosis High blood pressure(Discharge Diagnosis) - 01/02/21 Smoking(Discharge Diagnosis) - 01/02/21 Hematuria(Discharge Diagnosis) - 01/02/21 Attending Physician: Eloina Zamora NP Allergies, Adverse [...] (DT) 10/16/03 Given 1Result Comment: [facility]: [id number] 2Result Comment: FLU [facility] 94434-963-73 3Result Comment: [08/03/2018] [facility] [id number] 4Result Comment: [id number] Medications amLODIPine 10 mg oral tablet 1 [...] 0 Refills, Maintenance, 11/27/20 13:46:00 EST, Cream, [facility]/pharmacy #[id number], Partial fill upon patient request if the prescription is for a schedule II opioid drug., 1 application Topically Daily, 155, cm, ... Start Date: 11/27/20 Status: Ordered losartan 50 mg oral tablet 50 mg, 1, tablet, By Mouth, Daily, # 30 tablet, Refills 6, Tot. Refills 6, Maintenance, 12/15/20 8:44:00 EST, Route to Pharmacy Electronically, [facility]/pharmacy #[id number], Partial fill upon patient request if the prescription is for a schedule II opioid drug.... Start Date: 12/15/20 Stop Date: 07/13/21 Status: Ordered meloxicam 15 mg oral tablet 1 tablet = 15 mg, By Mouth, Daily, # 30 tablet, 0 Refills, Maintenance, 01/02/21 11:29:00 EDT, Tablet, [facility]/pharmacy #[id number], Partial fill upon patient request if the prescription is for a schedule II opioid drug., 155, cm, 01/02/21 11:19:00 EDT, Height Start Date: 01/02/21 Stop Date: 02/01/21 Status: Ordered metFORMIN 500 mg oral tablet 1 tablet = 500 mg, By Mouth, 2 times a day, # 60 tablet, 11 Refills, Maintenance, 01/04/21 9:20:00 EDT, Tablet, [facility]/pharmacy #[id number], Partial fill upon [...] EDT, 04/05/21 17:00:00 EDT, REC Powder, [id number], test date 04/06/21, 240 mL By Mouth... [...] Dates Health Status Cl inical Service Informant High blood pressure Discharge Diagnosis 01/02/21 Smoking Discharge Diagnosis 01/02/21 Hematuria Discharge Diagnosis 01/02/21 Vital Signs Most recent to oldest [Reference Range]: 1 2 Height 155 cm (01/02/21 11:19 AM) 155 cm (01/02/21 10:46 AM) Weight 85.1 kg (01/02/21 10:46 AM) Oxygen Saturation [94-100 %] 97 % (01/02/21 10:46 AM) Pulse Rate [55-90 bpm] 84 bpm (01/02/21 10:46 AM) Body Mass Index [18.5-24.99] 35.42 *>HHI* (01/02/21 10:46 AM) Blood Pressure [90-138/55-84 mm Hg] 150/ 88mm Hg *H* (01/02/21 11:19 AM) 153/83mm Hg *H* (01/02/21 10:46 AM) Mode of Delivery (Oxygen) Room air (01/02/21 10:46 AM) Blood pressure sites Arm, left (01/02/21 11:19 AM) Arm, left (01/02/21 10:46 AM) Weight Obtained Via Standing scale (01/02/21 10:46 AM) Social History Social History Type Response Tobacco Use: 4 or less cigar ettes(less than 1/4 pack)/day in last 30 days. Sex
--- OUTSIDE RECORDS SUMMARY | 2023-07-21 02:55 | XMS_ITS | Continuity of Care Document ---
Author Name Unknown Organization [facility] Adult Address [address] [place] [address]- Care Team Providers Care Lead Android Developer Name Role Phone Sera KIM, Eloina Roberts Primary Care Physician Encounter [facility] Date(s): 02/06/22 - 03/08/22 [facility] Adult [address] [place] [address]- Allergies, Adverse Reactions, Alerts Substance Reaction Severity [...] toxoids (DT) 10/16/03 Given 1Result Comment: [facility]# [id number] 2Result Comment: [facility]: [id number] 3Result Comment: FLU [facility] [id number] 4Result Comment: [08/03/2018] [facility] [id number] 5Result Comment: [id number] 6Result Comment: [facility]: [id number] Medications amLODIPine 10 mg oral tablet 1 tablet, By Mouth, Daily, # 90 tablet, 1 Refills, [id number], 153, cm, 08/10/21 10:40:00 EDT,Height, 84, kg, [...] capsule, 0 Refills, Maintenance, 02/08/22 9:13:00EDT, Capsule, [facility]/pharmacy #[id number], Partial fill upon patient request if the prescription is for a schedule II opioid drug., 153, cm, 02/08/22 8:52:00 ED... Start Date: 02/08/22 Stop Date: 02/18/22 Status: Ordered hydroCHLOROthiazide 12.5 mg oral capsule 1 capsule = 12.5 mg, By Mouth, Daily, # 30 capsule, 1 Refills, Maintenance, 02/08/22 9:08:00 EDT, Capsule, [facility]/pharmacy #[id number], Partial fill upon patient request if the prescription is for a schedule II opioid drug., 153, cm, 02/08/22 8:52:00 EDT, Heig... Start Date: 02/08/22 Stop Date: 04/09/22 Status: Ordered [employer] COVID-19 Vaccine preservative-free intramuscular suspension 0.5 mL, Intramuscular, Once, # 0.5 mL, 0 Refills, Soft Stop, 02/06/21 11:54:00 EDT, Suspension, [facility]/pharmacy #[id number], Partial fill upon patient request if the prescription is for a schedule II opioid drug., 0.5 mL Intramuscular Once, 155, cm, 02/06/21 1... Start Date: 02/06/21 Status: Ordered losartan 50 mg oral tablet 50 mg, 1, tablet, By Mouth, Daily, # 90 tablet, Refills 3, Tot. Refills 3, Maintenance, 02/06/21 11:55:00 EDT, Route to Pharmacy Electronically, [facility]/pharmacy #[id number], Partial fill upon patient request if the prescription is for a schedule II opioid drug... Start Date: 02/06/21 Stop Date: 02/01/22 Status: Ordered metFORMIN 500 mg oral tablet 1 tablet = 500 mg, By Mouth, 2 times a day, # 60 tablet, 11 Refills, Maintenance, 01/04/21 9:20:00 EDT, Tablet, [facility]/pharmacy #[id number], Partial fill upon patient request if the prescription is for a schedule II opioid drug., 155, cm, 01/02/21 11:19:00 EDT... Start Date: 01/04/21 Stop Date: 12/30/21 Status: Ordered omeprazole 20 mg oral delayed release tablet 1 tablet = 20 mg, By Mouth, Daily, # 30 tablet, 11 Refills, Maintenance, 08/10/21 10:37:00 EDT, [facility]/pharmacy #[id number], Partial fill upon patient request [...]
--- OUTSIDE RECORDS SUMMARY | 2023-07-21 02:55 | XMS_ITS | Continuity of Care Document ---
Author Name Unknown Organization [facility] Adult Address [address] [place] [address]- Care Team Providers Care Pit Hoist Operator Name Role Phone Sera KIM, Eloina Roberts Primary Care Physician [place] [facility] [place] 12/[place]19 - 01/07/20 [facility] Adult [address] [place] [address]- [facility] Attending Physician: Roosevelt Bradshaw Admitting Physician: AdmRoosevelt [...] toxoids (DT) 10/16/03 Given 1Result Comment: FLU [facility] 51164-425-25 2Result Comment: [08/03/2018] [facility] [id number] 3Result Comment: [id number] Medications amLODIPine 5 mg oral tablet 5 [...] 6 Refills, Maintenance, 10/19/19 11:52:00 EST, Tablet, [facility]/pharmacy #[id number], 155, cm, 10/19/19 11:24:00 EST, Height [...]
--- OUTSIDE RECORDS SUMMARY | 2023-07-21 02:55 | XMS_ITS | Continuity of Care Document ---
Author Name Unknown Organization [facility] Adult Address [address] [place] [address]- Care Team Providers Care Conceptor Name Role Phone Sera KIM, Eloina Roberts Primary Care Physician Encounter [facility] Date(s): 08/10/21 - 08/17/21 [facility] Adult [address] [place] [address]- Encounter Diagnosis Anemia(Discharge Diagnosis) - 08/10/21 Cardiomyopathy - . Resolved 06(Discharge Diagnosis) - 08/10/21 High blood pressure(Discharge Diagnosis) - 08/10/21 Smoking(Discharge Diagnosis) - 08/10/21 Attending Physician: Eloina Zamora NP Allergies, Adverse [...] Given 1Result Comment: [facility]# [id number] 2Result Comment: [facility]: [id number] 3Result Comment: FLU [facility] [id number] 4Result Comment: [08/03/2018] [facility] [id number] 5Result Comment: [id number] 6Result Comment: [facility]: [id number] Medications amLODIPine 10 mg oral tablet 1 tablet, By Mouth, Daily, # 90 tablet, 1 Refills, [facility], 153, cm, 08/10/21 10:40:00 EDT,Height, 84, kg, 04/06/21 9:15:00 EDT, Dry Weight Start Date: 08/16/21 Status: Ordered BLOOD PRESSURE MONITOR BLOOD PRESSURE MONITOR, See Instructions, # 1 each, Refills 0, Tot. Refills 0, Maintenance, DX: HYPERTENSION, 06/29/20 12:53:00 EDT, Supply Start Date: 06/29/20 Status: Ordered doxycycline hyclate 100 mg oral capsule 1 capsule = 100 mg, By Mouth, 2 times a day, # 20 capsule, 0 Refills, Maintenance, 08/10/21 10:35:00 EDT, Capsule, Partial fill upon patient request if the prescription is for a schedule II opioid drug. Start Date: 08/10/21 Status: Ordered [employer] COVID-19 Vaccine preservative-free intramuscular suspension 0.5 mL, Intramuscular, Once, # 0.5 mL, 0 Refills, Soft Stop, 02/06/21 11:54:00 EDT, Suspension, [facility]/pharmacy #[id number], Partial fill upon patient request if the prescription is for a schedule II opioid drug., 0.5 mL Intramuscular Once, 155, cm, 02/06/21 1... Start Date: 02/06/21 Status: Ordered ketoconazole 2% topical cream 1 application, Topically, Daily, # 60 Gm, 0 Refills, Maintenance, 11/27/20 13:46:00 EST, Cream, [facility]/pharmacy #[id number], Partial fill upon patient request if the prescription is for a schedule II opioid drug., 1 application Topically Daily, 155, cm, 11/27/... Start Date: 11/27/20 Status: Ordered losartan 50 mg oral tablet 50 mg, 1, tablet, By Mouth, Daily, # 90 tablet, Refills 3, Tot. Refills 3, Maintenance, 02/06/21 11:55:00 EDT, Route to Pharmacy Electronically, [facility]/pharmacy #[id number], Partial fill upon patient request if the prescription is for a schedule II opioid drug... Start Date: 02/06/21 Stop Date: 02/01/22 Status: Ordered meloxicam 15 mg oral tablet 1 tablet, By Mouth, Daily, # 30 tablet, 0 Refills, Maintenance, 03/06/21 8:41:00 EDT, [facility], 155, cm, 02/06/21 11:44:00 EDT, Height Start [...] Status Clinical Service Informant Anemia Discharge Diagnosis 08/10/21 Cardiomyopathy - . Resolved 06 Discharge Diagnosis 08/10/21 High blood pressure Discharge Diagnosis 08/10/21 Smoking Discharge Diagnosis 08/10/21 Vital Signs Most recent to oldest [Reference Range]: 1 2 3 Height 153 cm (08/10/21 10:40 AM) 153 cm (08/10/21 10:10 AM) 153 cm (08/10/21 10:01 AM) Weight 88.4 kg (08/10/21 10:01 AM) Oxygen Saturation [94-100 %] 97 % (08/10/21 10:01 AM) Pulse Rate [55-90 bpm] 74 bpm (08/10/21 10:01 AM) Body Mass Index [18.5-24.99] 37.76 *>HHI* (08/10/21 10:01 AM) Blood Pressure [90-138/55-84 mm Hg] 134/78mm Hg (08/10/21 10:40 AM) 132/77mm Hg (08/10/21 10:10 AM) 148/79mm Hg *H* (08/10/21 10:01 AM) Mode of Delivery (Oxygen) Room air (08/10/21 10:01 AM) Blood pressure sites Arm, left (08/10/21 10:40 AM) Arm, right (08/10/21 10:10 AM) Arm, right (08/10/21 10:01 AM) Weight Obtained Via Standing scale (08/10/21 10:01 AM) Social History Social History Type Response Tobacco Use: 4 or less cigar ettes(less than 1/4 pack)/day in last 30 days. Sex
--- OUTSIDE RECORDS SUMMARY | 2023-07-21 02:55 | XMS_ITS | Continuity of Care Document ---
Author Name Unknown Organization [facility] Adult Address [address] [place] [address]- Care Team Providers Care Stamp Analyst Name Role Phone Sera KIM, Eloina Roberts Primary Care Physician [place] [facility] [place]s): 05/06/23 - 06/05/23 [facility] Adult [address] [place] [address]- Attending Physician: Roosevelt Bradshaw Admitting Physician: AdmtrRoosevelt Referring Physician: Admtr, Ar8 Allergies, Adverse Reactions, Alerts Substance Reaction Severity [...] 10/16/03 Given 1Result Comment: [facility]# [id number] 2Result Comment: [facility]# [id number] 3Result Comment: [facility]: [id number] 4Result Comment: FLU [facility] [id number] 5Result Comment: [08/03/2018] [facility] [id number] 6Result Comment: [id number] 7Result Comment: [facility]: [id number] Medications amLODIPine 10 mg oral tablet 1 tablet, By Mouth, Daily, for 90 days, # 90 tablet, 3 Refills, Physician Stop 10/18/23 11:08:00 EST, 10/23/22 11:08:00 EST, [facility]/pharmacy #[id number], 153, cm, 10/23/22 10:24:00 EST, [...] 10/23/22 11:08:00 EST, Route to Pharmacy Electronically, [facility]/pharmacy #[id number], Partial fill upon patient request if the prescription is for a schedule II opioid drug... Start Date: 10/23/22 Stop Date: 10/18/23 Status: Ordered [employer] COVID-19 Vaccine preservative-free intramuscular suspension 0.5 mL, Intramuscular, Once, # 0.5 mL, 0 Refills, Soft Stop, 02/06/21 11:54:00 EDT, Suspension, [facility]/pharmacy #[id number], Partial fill upon patient request if the prescription is for a schedule II opioid drug., 0.5 mL Intramuscular Once, 155, cm, 02/06/21 1... Start Date: 02/06/21 Status: Ordered losartan 50 mg oral tablet 50 mg, 1, tablet, By Mouth, Daily, # 90 tablet, Refills 3, Tot. Refills 3, Maintenance, 10/23/22 11:08:00 EST, Route to Pharmacy Electronically, [facility]/pharmacy #[id number], Partial fill upon patient request if the prescription is for a schedule II opioid drug... Start Date: 10/23/22 Stop Date: 10/18/23 Status: Ordered meclizine 25 mg oral tablet 1 tablet = 25 mg, By Mouth, 3 times a day, PRN for dizziness, # 21 tablet, 0 Refills, Maintenance, 05/06/23 12:28:00 EDT, Tablet, [id number], Partial fill upon [...] 2 Refills, Maintenance, 05/06/23 12:26:00 EDT, Cream, [id number], Partial fill upon patient request if the prescription is for a schedule II opioid drug., 1 application Topically 2 times a day,... Start Date: 05/06/23 Status: Ordered Vitamin D3 50,000 intl units oral capsule 1 capsule, By Mouth, Every week, # 13 capsule, 0 Refills, Maintenance, 02/07/23 11:01:00 EDT, [id number], 153, cm, 10/23/22 10:24:00 EST, Height, 84, [...] 1/4 pack)/day in last 30 days. Sex EKG study * Event Display: EKG Authored Date: Laboratory * Event Display: Laboratory Result Scanned Authored Date: * Event Display: Laboratory Result Scanned Authored Date: * Event Display: Laboratory Result Scanned Authored Date: XR Chest Views * Event Display: X-Ray Chest Authored Date: Radiology * Event Display: X-Ray Chest, Non- BH Authored Date: * Event Display: X-Ray Chest, Non- BH Authored Date: * Event Display: IR Special Procedures, Non-BH Authored Date: * Event Display: X-Ray Abdomen, Non- BH Authored Date: Patient Care team information Care Team Personnel Name: Eloina Zamora NP Position: [facility] PCO Associate Professional Member Role: PCP Address: [facility] [address] [place] [address]- Name: Matt Cordero MD Position: [facility] Renal MD Member Role: Lifetime Consulting Physician Address: Address: [address] [place] [address] [facility] [place] [address]- Care Team Related Persons Name: PORSCHE VALENCIA Address: [address] [address] Name: TRENTON VALENCIA Address: [address] [address] Name: JEFFERY BOYKIN
--- OUTSIDE RECORDS SUMMARY | 2023-07-21 02:55 | XMS_ITS | Continuity of Care Document ---
Author Name Unknown Organization [facility] Adult Address [address] [place] [address]- Care Team Providers Care Financial Sales Professional Name Role Phone Sera KIM, Eloina Roberts Primary Care Physician Encounter [facility] Date(s): 07/09/22 - 07/16/22 [facility] [address] [place] [address]- Encounter Diagnosis Hypertension(Discharge Diagnosis) - 07/09/22 Attending Physician: Eloina Zamora NP Allergies, Adverse [...] [facility] [id number] 2Result Comment: [facility]: [id number] 3Result Comment: FLU [facility] [id number] 4Result Comment: [08/03/2018] [facility] [id number] 5Result Comment: [id number] 6Result Comment: [facility]: [id number] Medications amLODIPine 10 mg oral tablet 1 tablet, By Mouth, Daily, # 90 tablet, 1 Refills, [id number], 153, cm, 08/10/21 10:40:00 EDT,Height, 84, kg, 04/06/21 9:15:00 EDT, Dry Weight Start Date: 08/16/21 Status: Ordered BLOOD PRESSURE MONITOR BLOOD PRESSURE MONITOR, See Instructions, # 1 each, Refills 0, Tot. Refills 0, Maintenance, Use to monitor blood pressure DX: HYPERTENSION, 07/09/22 9:12:00 EDT, Supply Start Date: 07/09/22 Status: Ordered cephalexin monohydrate 500 mg oral capsule 1 capsule = 500 mg, By Mouth, 3 times a day, # 30 capsule, 0 Refills, Maintenance, 02/08/22 9:13:00EDT, Capsule, [facility]/pharmacy #[id number], Partial fill upon patient request if the prescription is for a schedule II opioid drug., 153, cm, 02/08/22 8:52:00 ED... Start Date: 02/08/22 Stop Date: 02/18/22 Status: Ordered hydrochlorothiazide 25 mg oral tablet 25 mg, 1, tablet, By Mouth, Daily, # 30 tablet, Refills 1, Tot. Refills 1, Maintenance, 04/23/22 11:48:00 EDT, Route to Pharmacy Electronically, [facility]/pharmacy #[id number], Partial fill upon patient request if the prescription is for a schedule II opioid drug... Start Date: 04/23/22 Stop Date: 06/22/22 Status: Ordered Brandon COVID-19 Vaccine preservative-free intramuscular suspension 0.5 mL, Intramuscular, Once, # 0.5 mL, 0 Refills, Soft Stop, 02/06/21 11:54:00 EDT, Suspension, [facility]/pharmacy #[id number], Partial fill upon patient request if the prescription is for a schedule II opioid drug., 0.5 mL Intramuscular Once, 155, cm, 02/06/21 1... Start Date: 02/06/21 Status: Ordered losartan 50 mg oral tablet 50 mg, 1, tablet, By Mouth, Daily, # 90 tablet, Refills 3, Tot. Refills 3, Maintenance, 02/06/21 11:55:00 EDT, Route to Pharmacy Electronically, [facility]/pharmacy #[id number], Partial fill upon patient request if the prescription is for a schedule II opioid drug... Start Date: 02/06/21 Stop Date: 02/01/22 Status: Ordered meclizine 25 mg oral tablet 1 tablet = 25 mg, By Mouth, 3 times a day, PRN for dizziness, # 21 tablet, 0 Refills, Maintenance, 07/09/22 9:03:00 EDT, Tablet, [facility]/pharmacy #[id number], Partial fill upon patient request [...] 11 Refills, Maintenance, 01/04/21 9:20:00 EDT, Tablet, [facility]/pharmacy #[id number], Partial fill upon patient request if the prescription is for a schedule II opioid drug., 155, cm, 01/02/21 11:19:00 EDT... Start Date: 01/04/21 Stop Date: 12/30/21 Status: Ordered omeprazole 20 mg oral delayed release tablet 1 tablet = 20 mg, By Mouth, Daily, # 30 tablet, 11 Refills, Maintenance, 04/23/22 11:47:00 EDT, [facility]/pharmacy #[id number], Partial fill upon patient request if the prescription is for a schedule II opioid drug., 153, cm, 04/23/22 11:21:00 EDT, Height, 84, kg... Start Date: 04/23/22 Stop Date: 04/18/23 Status: Ordered Problem List Condition Confirmation Course Effective Dates Status H ealth Status Informant Anemia Confirmed Active Benign paroxysmal positional vertigo Confirmed Active Heel spur 1 Confirmed 12/25/17 Active Cardiomyopathy - . Resolved 06 Confirmed Active Diabetes Confirmed Active High blood pressure Confirmed Active Hypertension Confirmed Active Dyspepsia Confirmed Active Obese class II Confirmed Active Recurrent ventral incisional hernia Confirmed Active Smoking Confirmed Active 1Left side - x-ray Diagnosis Diagnosis Type Effective Dates Health Status Cl inical Service Informant Hypertension Discharge Diagnosis 07/09/22 Vital Signs Most recent to oldest [Reference Range]: 1 2 Height 153 cm (07/09/22 8:53 AM) 153 cm (07/09/22 8:44 AM) Weight 89.472 kg (07/09/22 8:44 AM) Oxygen Saturation [94-100 %] 97 % (07/09/22 8:44 AM) Pulse Rate [55-90 bpm] 72 bpm (07/09/22 8:44 AM) Body Mass Index [18.5-24.99 kg/m2] 38.22 kg/m2 *>HHI* (07/09/22 8:44 AM) Blood Pressure [90-138/55-84 mm Hg] 149/ 87mm Hg *H* (07/09/22 8:53 AM) 153/81mm Hg *H* (07/09/22 8:44 AM) Temperature [96.8-100.4 DegF] 98.2 DegF (07/09/22 8:44 AM) Mode of Delivery (Oxygen) Room air (07/09/22 8:44 AM) Blood pressure sites Arm, right (07/09/22 8:53 AM) Arm, right (07/09/22 8:44 AM) Temperature Route Oral (07/09/22 8:44 AM) Social History Social History Type Response Tobacco Use: 4 or less cigar ettes(less than 1/4 pack)/day in last 30 days. Sex Patient Care team information Personnel Name: Sera KIM, Eloina Roberts Address: Address: [address] [facility] [address] [place], [place] [address]
--- OUTSIDE RECORDS SUMMARY | 2023-07-21 02:55 | XMS_ITS | Continuity of Care Document ---
Author Name Unknown Organization [facility] ter Address [address] [place] [address]- Care Team Providers Care Combination Machine Tool Setter Name Role Phone Sera KIM, Eloina Roberts Primary Care Physician Encounter [facility] Date(s): 05/09/23 - 07/03/[address] [address] Attending Physician: Eloina Zamora NP Admitting Physician: Eloina Zamora NP Referring Physician: Eloina Zamora NP Allergies, Adverse [...] diphtheria-tetanus toxoids (DT) 10/16/03 Given 1Result Comment: [facility]# 10617-190-44 2Result Comment: [facility]# [id number] 3Result Comment: [facility]: [id number] 4Result Comment: FLU [facility] [id number] 5Result Comment: [08/03/2018] [facility] [id number] 6Result Comment: [id number] 7Result Comment: [facility]: [id number] Medications amLODIPine 10 mg oral tablet 1 tablet, By Mouth, Daily, for 90 days, # 90 tablet, 3 Refills, Physician Stop 10/18/23 11:08:00 EST, 10/23/22 11:08:00 EST, [facility]/pharmacy #[id number], 153, cm, 10/23/22 10:24:00 EST, Height, [...] 10/23/22 11:08:00 EST, Route to Pharmacy Electronically, [facility]/pharmacy #[id number], Partial fill upon patient request if the prescription is for a schedule II opioid drug... Start Date: 10/23/22 Stop Date: 10/18/23 Status: Ordered Stella [employer] Dot COVID-19 Vaccine preservative-free intramuscular suspension 0.5 mL, Intramuscular, Once, # 0.5 mL, 0 Refills, Soft Stop, 02/06/21 11:54:00 EDT, Suspension, [facility]/pharmacy #[id number], Partial fill upon patient request if the prescription is for a schedule II opioid drug., 0.5 mL Intramuscular Once, 155, cm, 02/06/21 1... Start Date: 02/06/21 Status: Ordered losartan 50 mg oral tablet 50 mg, 1, tablet, By Mouth, Daily, # 90 tablet, Refills 3, Tot. Refills 3, Maintenance, 10/23/22 11:08:00 EST, [id number], Partial fill upon patient request [...] Refills, Maintenance, 02/07/23 11:01:00 EDT, [id number], 153, cm, 10/23/22 10:24:00 EST, Height, 84, [...] Personnel Name: Sera KIM, Eloina Roberts Position: [facility] PCO Associate Professional Member Role: PCP Address: Address: [address] [place] [address] [address] [place] [address]- Name: Matt Cordero MD Position: [facility] Renal MD Member Role: Lifetime Consulting Physician Address: Address: [address] [place] [address] [facility] [place] [address]- Care Team Related Persons Name: PORSCHE VALENCIA Address: home [address] [place] [address] Name: TRENTON VALENCIA Address: home [address] [place] [address] Name: JEFFERY BOYKIN
--- OUTSIDE RECORDS SUMMARY | 2023-07-21 02:55 | XMS_ITS | Continuity of Care Document ---
Author Name Unknown Organization [facility] Adult Address [address] [place] [address]- Care Team Providers Care Hay Rake Operator Name Role Phone Sera KIM, Eloina Roberts Primary Care Physician [place] [facility] Date(s): 09/12/20 - 10/12/20 [facility] [address] [place] [address]- Attending Physician: Roosevelt Bradshaw Admitting Physician: AdmRoosevelt [...] diphtheria-tetanus toxoids (DT) 10/16/03 Given 1Result Comment: [facility]: [id number] 2Result Comment: FLU [facility] [id number] 3Result Comment: [08/03/2018] [facility] [id number] 4Result Comment: [id number] Medications BLOOD PRESSURE MONITOR BLOOD PRESSURE MONITOR, [...]
--- OUTSIDE RECORDS SUMMARY | 2023-07-21 02:55 | XMS_ITS | Continuity of Care Document ---
Author Name Unknown Organization [facility] Adult Address [address] [place] [address]- Care Team Providers Care Team Assembler Name Role Phone Sera KIM, Eloina Roberts Primary Care Physician Encounter [facility] Date(s): 10/23/22 - 10/30/22 [facility] [address] [place] [address]- Encounter Diagnosis Physical exam(Discharge Diagnosis) - 10/23/22 Benign paroxysmal positional vertigo(Discharge Diagnosis) - 10/23/22 Cardiomyopathy - . Resolved 06(Discharge Diagnosis) - 10/23/22 Anemia(Discharge Diagnosis) - 10/23/22 Diabetes(Discharge Diagnosis) - 10/23/22 Hypertension(Discharge Diagnosis) - 10/23/22 Severe obesity (BMI 35.0-39.9) with comorbidity(Discharge Diagnosis) - 10/23/22 Smoking(Discharge Diagnosis) - 10/23/22 Attending Physician: Eloina Zamora NP Allergies, Adverse [...] toxoids (DT) 10/16/03 Given 1Result Comment: [facility]# [id number] 2Result Comment: [facility]# [id number] 3Result Comment: [facility]: [id number] 4Result Comment: FLU [facility] [id number] 5Result Comment: [08/03/2018] [facility] [id number] 6Result Comment: [id number] 7Result Comment: [facility]: [id number] Medications amLODIPine 10 mg oral tablet 1 tablet, By Mouth, Daily, for 90 days, # 90 tablet, 3 Refills, Physician Stop 10/18/23 11:08:00 EST, 10/23/22 11:08:00 EST, [facility]/pharmacy #[id number], 153, cm, 10/23/22 10:24:00 EST, [...] 10/23/22 11:08:00 EST, Route to Pharmacy Electronically, [facility] [...] 10/23/22 11:08:00 EST, Route to Pharmacy Electronically, [facility]/pharmacy #[id number], Partial fill upon patient request if the prescription is for a schedule II opioid drug... Start Date: 10/23/22 Stop Date: 10/18/23 Status: Ordered meclizine 25 mg oral tablet 1 tablet = 25 mg, By Mouth, 3 times a day, PRN for dizziness, # 21 tablet, 0 Refills, Maintenance, 07/09/22 9:03:00 EDT, Tablet, [facility]/pharmacy #[id number], Partial fill upon patient request if the prescription is for a schedule II opioid drug., 153, cm, 10/0... Start Date: 07/09/22 Stop Date: 07/16/22 Status: Ordered Meloxicam Daily, 0 Refills, Maintenance, 07/09/22 8:54:00 EDT, Partial fill upon patient request if the prescription is for a schedule II opioid drug. Start Date: 07/09/22 Status: Ordered metFORMIN 500 mg oral tablet 1 tablet = 500 mg, By Mouth, 2 times a day, # 60 tablet, 11 Refills, Maintenance, 01/04/21 9:20:00 EDT, Tablet, [facility]/pharmacy #[id number], Partial fill upon patient request if the prescription is for a schedule II opioid drug., 155, cm, 01/02/21 11:19:00 EDT... Start Date: 01/04/21 Stop Date: 12/30/21 Status: Ordered omeprazole 20 mg oral delayed release tablet 1 tablet = 20 mg, By Mouth, Daily, # 30 tablet, 11 Refills, Maintenance, 04/23/22 11:47:00 EDT, [facility]/pharmacy #[id number], Partial [...] Effective Dates Health Status Clinical Service Informant Physical exam Discharge Diagnosis 10/23/22 Benign paroxysmal positional vertigo Discharge Diagnosis 10/23/22 Cardiomyopathy - . Resolved 06 Discharge Diagnosis 10/23/22 Anemia Discharge Diagnosis 10/23/22 Diabetes Discharge Diagnosis 10/23/22 Hypertension Discharge Diagnosis 10/23/22 Severe obesity (BMI 35.0-39.9) with comorbidity Discharge Diagnosis 10/23/22 Smoking Discharge Diagnosis 10/23/22 Vital Signs Most recent to oldest [Reference Range]: 1 Height 153 cm (10/23/22 10:24 AM) Weight 88.9 kg (10/23/22 10:24 AM) Oxygen Saturation [94-100 %] 96 % (10/23/22 10:24 AM) Pulse Rate [55-90 bpm] 79 bpm (10/23/22 10:24 AM) Body Mass Index [18.5-24.99 kg/m2] 37.98 kg/m2 *>HHI* (10/23/22 10:24 AM) Blood Pressure [90-138/55-84 mm Hg] 136/ 84mm Hg (10/23/22 10:24 AM) Temperature [96.8-100.4 DegF] 97.8 DegF (10/23/22 10:24 AM) Mode of Delivery (Oxygen) Room air (10/23/22 10:24 AM) Blood pressure sites Arm, right (10/23/22 10:24 AM) Temperature Route Temporal (10/23/22 10:24 AM) Weight Obtained Via Standing scale (10/23/22 10:24 AM) Social History Social History Type Response Tobacco Use: 4 or less cigar ettes(less than 1/4 pack)/day in last 30 days. Sex Note * Teresa Kuo: PERFORM, SIGN, VERIFY Event Display: Patient Education/Instruction Authored Date: [facility] *[facility] Clinical Summary Name MAHESH RUELAS Age 52 Years 1970 PCP Sera KIM, Eloina Roberts PCP Visit Date 10/23/2022 10:02:00 Additional Instructions: Scheduled Appointments?? Future Appointments ?No Future Appointments Scheduled Follow-Up Instructions ?? Diagnosis Tobacco use; Benign paroxysmal vertigo, unspecified ear; Essential (primary) hypertension; Cardiomyopathy, unspecified; Anemia, unspecified; Type 2 diabetes mellitus without complications; Morbid (severe) obesity due to excess calories; Encounter for general adult medical examination without abnormal findings Medications: Please continue your medications until treatment is completed or stopped by your provider. Discuss any questions related to medications with your provider. Medications to Continue Taking That Have Changed [facility]/pharmacy #[id number], [address], [place] [id number], [phone] - Amlodipine (amLODIPine 10 mg oral tablet) 1 tab(s) Oral Daily for 90 Days. Refills: 3. Next Dose: - Hydrochlorothiazide (hydrochlorothiazide 25 mg oral tablet) 1 tab(s) Oral Daily for 90 Days. Refills: 3. Next Dose: Medications to Continue with No Changes [facility]/pharmacy #[id number], [address], [place] [phone], [phone] Losartan (losartan 50 mg oral tablet) 1 tab(s) Oral Daily for 90 Days. Refills: 3. Next Dose: These medications were not printed or sent to your pharmacy Durable Medical Equipment (BLOOD PRESSURE MONITOR) Use to monitor blood pressure DX: HYPERTENSION. Refills: 0. Next Dose: Meclizine (meclizine 25 mg oral tablet) 1 tab(s) Oral 3 times a day as needed for dizziness for 7 Days. Refills: 0. Next Dose: Meloxicam Daily. Next Dose: Metformin (metFORMIN 500 mg oral tablet) 1 tab(s) Oral twice a day for 30 Days. Refills: 11. Next Dose: Omeprazole (omeprazole 20 mg oral delayed release tablet) 1 tab(s) Oral Daily for 30 Days. Refills:11. Next Dose: SARS-CoV-2 (COVID-19) Ad26 vaccine (Gruvi COVID-19 Vaccine preservative-free intramuscular suspension) 0.5 Milliliter Intramuscular once. Refills: 0. Next Dose: No Longer Take the Following Medications Cephalexin (cephalexin monohydrate 500 mg oral capsule) 1 capsule Oral 3 times a day for 10 Days. Refills: 0. Allergy Info:?? lisinopril Medications Given This Visit Medication Dose Route influenza virus vaccine, inactivated (influenza virus, inactivated vacc) 0.5 mL Intramuscular Future Orders ?Microalbumin Urine? Order Date:10/23/22?- Complete on or after?10/23/22 ?CBC w/ Differential? Order Date:10/23/22?- Complete on or after?10/23/22 ?Complete Urinalysis/Reflex Culture? Order Date:10/23/22?- Complete on or after?10/23/22 ?Vitamin D 25 Hydroxy Level? Order Date:10/23/22?- Complete on or after?10/23/22 ?TSH with T4 Reflex (Adults Only)? Order Date:10/23/22?- Complete on or after?10/23/22 ?Lipid Panel? Order Date:10/23/22?- Complete on or after?10/23/22 ?Comprehensive Metabolic Panel? Order Date:10/23/22?- Complete on or after?10/23/22 Vital Signs Height 153 cm Weight 88.9 kg BMI 37.98 kg/m2 Blood Pressure 136 mm Hg/84 mm Hg Temperature 97.8 DegF Pulse Rate 79 bpm Respiratory Rate 02 Sat Mode of Delivery 96 %/Room air You can now view a summary of your hospital visit from the comfort of your home through a free online portal called [facility]. [facility] is a website that allows you to securely view your medical information including discharge summary, medications and follow-up visits. ??You can alsosend a secure electronic message to your doctor???s office to request appointments, renew medications or just ask a question. You can enroll at [email or web address] or register during your next office visit. [...] primary care provider, you may find a [facility] provider by calling [facility] [employer] at [phone]. For information about the plan of care [...] Personnel Name: Sera KIM, Eloina Roberts Position: [facility] PCO Associate Professional Member Role: PCP Address: Address: [address] [place] [address] [address] [place] [address]- Name: Matt Cordero MD Position: [facility] Renal MD Member Role: Lifetime Consulting Physician Address: Address: [address] [place] [address] [facility] [place] [address]- Care Team Related Persons Name: PORSCHE VALENCIA Address: [address] [place] [address] Name: TRENTON VALENCIA Address: [address] [place] [address] Name: JEFFERY BOYKIN
--- OUTSIDE RECORDS SUMMARY | 2023-07-21 02:55 | XMS_ITS | Continuity of Care Document ---
Author Name Unknown Organization [facility] Adult Address [address] [place] [address]- Care Team Providers Care Grocery Clerk Stocking Name Role Phone Sera KIM, Eloina Roberts Primary Care Physician Encounter [facility] Date(s): 11/06/22 - 12/06/22 [facility] Adult [address] [place] [address]- Allergies, Adverse Reactions, Alerts Substance Reaction Severity [...] toxoids (DT) 10/16/03 Given 1Result Comment: [facility]# [id number] 2Result Comment: [facility]# [id number] 3Result Comment: [facility]: [id number] 4Result Comment: FLU [facility] [id number] 5Result Comment: [08/03/2018] [facility] [id number] 6Result Comment: [id number] 7Result Comment: [facility]: [id number] Medications amLODIPine 10 mg oral tablet 1 tablet, By Mouth, Daily, for 90 days, # 90 tablet, 3 Refills, Physician Stop 10/18/23 11:08:00 EST, 10/23/22 11:08:00 EST, [facility]/pharmacy #[id number], 153, cm, 10/23/22 10:24:00 EST, [...] 10/23/22 11:08:00 EST, Route to Pharmacy Electronically, [facility]/pharmacy #[id number], Partial fill upon patient request if the prescription is for a schedule II opioid drug... Start Date: 10/23/22 Stop Date: 10/18/23 Status: Ordered [place] COVID-19 Vaccine preservative-free intramuscular suspension 0.5 mL, Intramuscular, Once, # 0.5 mL, 0 Refills, Soft Stop, 02/06/21 11:54:00 EDT, Suspension, [facility]/pharmacy #[id number], Partial fill upon patient request if the prescription is for a schedule II opioid drug., 0.5 mL Intramuscular Once, 155, cm, 02/06/21 1... Start Date: 02/06/21 Status: Ordered losartan 50 mg oral tablet 50 mg, 1, tablet, By Mouth, Daily, # 90 tablet, Refills 3, Tot. Refills 3, Maintenance, 10/23/22 11:08:00 EST, Route to Pharmacy Electronically, [facility]/pharmacy #[id number], Partial fill upon patient [...] Personnel Name: Sera KIM, Eloina Roberts Position: [facility] PCO Associate Professional Member Role: PCP Address: Address: [address] [place] [address] [address] [place] [address]- Name: Matt Cordero MD Position: [facility] Renal MD Member Role: Lifetime Consulting Physician Address: Address: [address] [place] [address] [facility] [place] [address]- Care Team Related Persons Name: PORSCHE VALENCIA Address: home [address] [place] [address] Name: TRENTON VALENCIA Address: [address] [place] [address] Name: JEFFERY BOYKIN
--- OUTSIDE RECORDS SUMMARY | 2023-07-21 02:55 | XMS_ITS | Continuity of Care Document ---
Author Name Unknown Organization [facility] Adult Address [address] [place] [address]- Care Team Providers Care Brim Ironer Hand Name Role Phone Sera KIM, Eloina Roberts Primary Care Physician [place] [facility] [place] 07[place]/21 [facility] Adult [address] [place] [id number]- Attending Physician: Roosevelt Bradshaw Admitting Physician: Roosevelt [...] 10/16/03 Given 1Result Comment: [facility]: 40020-640-51 2Result Comment: [facility]: [id number] 3Result Comment: FLU [facility] [id number] 4Result Comment: [08/03/2018] [facility] [id number] 5Result Comment: [id number] Medications amLODIPine 10 mg oral tablet See Instructions, TAKE 1 TABLET BY MOUTH EVERY DAY, # 90 tablet, 1 Refills, Maintenance, 01/30/21 12:53:00 EDT, [facility]/pharmacy #[id number], 155, cm, 01/02/21 11:19:00 EDT, Height Start Date: 01/30/21 Status: Ordered BLOOD PRESSURE MONITOR BLOOD PRESSURE MONITOR, See Instructions, # 1 each, Refills 0, Tot. Refills 0, Maintenance, DX: HYPERTENSION, 06/29/20 12:53:00 EDT, Supply Start Date: 06/29/20 Status: Ordered [employer] COVID-19 Vaccine preservative-free intramuscular suspension 0.5 mL, Intramuscular, Once, # 0.5 mL, 0 Refills, Soft Stop, 02/06/21 11:54:00 EDT, Suspension, [facility]/pharmacy #[id number], Partial fill upon patient request if the prescription is for a schedule II opioid drug., 0.5 mL Intramuscular Once, 155, cm, 02/06/21 1... Start Date: 02/06/21 Status: Ordered ketoconazole 2% topical cream 1 application, Topically, Daily, # 60 Gm, 0 Refills, Maintenance, 11/27/20 13:46:00 EST, Cream, [facility]/pharmacy #[id number], Partial fill upon patient request if the prescription is for a schedule II opioid drug., 1 application Topically Daily, 155, cm, ... Start Date: 11/27/20 Status: Ordered losartan 50 mg oral tablet 50 mg, 1, tablet, By Mouth, Daily, # 90 tablet, Refills 3, Tot. Refills 3, Maintenance, 02/06/21 11:55:00 EDT, Route to Pharmacy Electronically, [facility]/pharmacy #[id number], Partial fill upon patient request if the prescription is for a schedule II opioid drug... Start Date: 02/06/21 Stop Date: 02/01/22 Status: Ordered meloxicam 15 mg oral tablet 1 tablet, By Mouth, Daily, # 30 tablet, 0 Refills, Maintenance, 03/06/21 8:41:00 EDT, [facility] STORE [id number], 155, cm, 02/06/21 11:44:00 EDT, Height Start Date: 03/06/21 Status: Ordered metFORMIN 500 mg oral tablet 1 tablet = 500 mg, By Mouth, 2 times a day, # 60 tablet, 11 Refills, Maintenance, 01/04/21 9:20:00 EDT, Tablet, [facility]/pharmacy #[id number], Partial fill upon patient request if the prescription is for a schedule II opioid drug., 155, cm, 01/02/21 11:19:00 EDT... Start Date: 01/04/21 Stop Date: 12/30/21 Status: Ordered sulfamethoxazole-trimethoprim 800 mg-160 mg oral tablet 1 tablet, By Mouth, 2 times a day, # 20 tablet, 0 Refills, Maintenance, 02/06/21 12:04:00 EDT, Tablet, [facility]/pharmacy #[id number], Partial fill upon patient request [...]
--- OUTSIDE RECORDS SUMMARY | 2023-07-21 02:55 | XMS_ITS | Continuity of Care Document ---
Author Name Unknown Organization [facility] Adult Address [address] [place] [address]- Care Team Providers Care Payroll Clerk Name Role Phone Eloina Zamora NP Primary Care Physician En[place] [facility] [place] Date(s): 12/11/20 - 12/18/20 [facility] Adult [address] [place] [phone]- Encounter Diagnosis Physical exam(Discharge Diagnosis) - 12/11/20 Anemia(Discharge Diagnosis) - 12/11/20 Benign paroxysmal positional vertigo(Discharge Diagnosis) - 12/11/20 Cardiomyopathy - . Resolved 06(Discharge Diagnosis) - 12/11/20 Dyspepsia(Discharge Diagnosis) - 12/11/20 High blood pressure(Discharge Diagnosis) - 12/11/20 Smoking(Discharge Diagnosis) - 12/11/20 Rash(Discharge Diagnosis) - 12/11/20 Seborrheic keratoses(Discharge Diagnosis) - 12/11/20 Attending Physician: Eloina Zamora NP Allergies, Adverse [...] tetanus/diphtheria/pertussis, acel(Tdap) 08/13/17 Given diphtheria-tetanus toxoids (DT) 1/11/04 Given 1Result Comment: [facility]: [id number] 2Result Comment: FLU [facility] [id number] 3Result Comment: [08/03/2018] [facility] [id number] 4Result Comment: [id number] Medications amLODIPine 5 mg oral tablet 5 mg, 1, tablet, By Mouth, Daily, # 30 tablet, Refills 0, Tot. Refills 0, Maintenance, 12/11/20 11:25:00 EST, Route to Pharmacy Electronically, [facility]/pharmacy #[id number], Partial fill upon patient request if the prescription is for a schedule II opioid drug.... Start Date: 12/11/20 Stop Date: 01/10/21 Status: Ordered Bactrim DS 800 mg-160 mg oral tablet 1 tablet, By Mouth, 2 times a day, for 10 days, # 20 tablet, 0 Refills, Acute 12/21/20 11:39:00 EDT, 12/11/20 11:39:00 EST, Tablet, [facility]/pharmacy #[id number], Partial fill upon patient request if the prescription is for a schedule II opioid drug., 1 tablet B... Start Date: 12/11/20 Stop Date: 12/21/20 Status: Ordered BLOOD PRESSURE MONITOR BLOOD PRESSURE MONITOR, See Instructions, # 1 each, Refills 0, Tot. Refills 0, Maintenance, DX: HYPERTENSION, 06/29/20 12:53:00 EDT, Supply Start Date: 06/29/20 Status: Ordered ketoconazole 2% topical cream 1 application, Topically, Daily, # 60 Gm, 0 Refills, Maintenance, 11/27/20 13:46:00 EST, Cream, [facility]/pharmacy #[id number], Partial fill upon patient request if the prescription is for a schedule II opioid drug., 1 application Topically Daily, 155, cm, ... Start Date: 11/27/20 Status: Ordered losartan 50 mg oral tablet 50 mg, 1, tablet, By Mouth, Daily, # 30 tablet, Refills 6, Tot. Refills 6, Maintenance, 12/15/20 8:44:00 EST, Route to Pharmacy Electronically, [facility]/pharmacy #[id number], Partial fill upon patient request if the prescription is for a schedule II opioid drug.... Start Date: 12/15/20 Stop Date: 07/13/21 Status: Ordered Problem List Condition Effective Dates Status Health Status Inform ant Anemia(Confirmed) Active Benign paroxysmal positional vertigo(Confirmed) Active Heel spur(Confirmed) 1 12/25/17 Active Cardiomyopathy - . Resolved 06(Confirmed) Active High blood pressure(Confirmed) Active Dyspepsia(Confirmed) Active Recurrent ventral incisional hernia(Confirmed) Active Smoking(Confirmed) Active 1Left side - x-ray Diagnosis Diagnosis Type Effective Dates Health Status Clinical Service Informant Physical exam Discharge Diagnosis 12/11/20 Anemia Discharge Diagnosis 12/11/20 Benign paroxysmal positional vertigo Discharge Diagnosis 12/11/20 Cardiomyopathy - . Resolved 06 Discharge Diagnosis 12/11/20 Dyspepsia Discharge Diagnosis 12/11/20 High blood pressure Discharge Diagnosis 12/11/20 Smoking Discharge Diagnosis 12/11/20 Rash Discharge Diagnosis 12/11/20 Seborrheic keratoses Discharge Diagnosis 12/11/20 Vital Signs Most recent to oldest [Reference Range]: 1 2 Height 155 cm (12/11/20 11:54 AM) 155 cm (12/11/20 11:09 AM) Weight 88.1 kg (12/11/20 11:09 AM) Oxygen Saturation [94-100 %] 98 % (12/11/20 11:09 AM) Pulse Rate [55-90 bpm] 96 bpm *H* (12/11/20 11:09 AM) Body Mass Index [18.5-24.99] 36.67 *>HHI* (12/11/20 11:09 AM) Blood Pressure [90-138/55-84 mm Hg] 178/ 88mm Hg *H* (12/11/20 11:54 AM) 178/107mm Hg *H* (12/11/20 11:09 AM) Mode of Delivery (Oxygen) Room air (12/11/20 11:09 AM) Blood pressure sites Arm, left (12/11/20 11:54 AM) Arm, left (12/11/20 11:09 AM) Weight Obtained Via Standing scale (12/11/20 11:09 AM) Social History Social History Type Response Tobacco Use: 4 or less cigar ettes(less than 1/4 pack)/day in last 30 days. Sex
--- OUTSIDE RECORDS SUMMARY | 2023-07-21 02:55 | XMS_ITS | Continuity of Care Document ---
Author Name Unknown Organization [facility] Adult Address [address] [place] [id number]- Care Team Providers Care Binder And Wrapper Packer Name Role Phone Sera KIM, Eloina Roberts Primary Care Physician [place] [facility] [place](s[place] 08/31/19 - 12/29/[address] [facility] Adult [address] [place] [phone]- [facility] Attending Physician: Jhonatan Jimenez MD Allergies, Adverse Reactions, Alerts Substance Reaction [...] toxoids (DT) 10/16/03 Given 1Result Comment: FLU [facility] [id number] 2Result Comment: [08/03/2018] [facility] [id number] 3Result Comment: [id number] Medications amLODIPine 5 mg oral tablet 5 mg, 1, tablet, By Mouth, Daily, # 30 tablet, Refills 6, Tot. Refills 6, Maintenance, 10/19/19 11:58:00 EST, Route to Pharmacy Electronically, [facility]/pharmacy #[id number], 155, cm, 10/19/19 11:56:00 EST, Height Start Date: 10/19/19 Stop Date: 05/16/20 Status: Ordered losartan 100 mg oral tablet 1 tablet = 100 mg, By Mouth, Daily, # 30 tablet, 6 Refills, Maintenance, 10/19/19 11:52:00 EST, Tablet, [facility]/pharmacy #[id number], 155, cm, 10/19/19 11:24:00 EST, [...]
--- OUTSIDE RECORDS SUMMARY | 2023-07-21 02:55 | XMS_ITS | Continuity of Care Document ---
Author Name Unknown Organization [facility] Adult Address [address] [place] [phone]- Care Team Providers Care Lay Out Drafter Name Role Phone Sera KIM, Eloina Roberts Primary Care Physician [place] [facility] [place]13[place]19 [facility] Adult [address] [place] [phone] Encounter Diagnosis Benign paroxysmal positional vertigo(Discharge Diagnosis) - 12/06/19 Cardiomyopathy - . Resolved 06(Discharge Diagnosis) - 12/06/19 Anemia(Discharge Diagnosis) - 12/06/19 High blood pressure(Discharge Diagnosis) - 12/06/19 Smoking(Discharge Diagnosis) - 12/06/19 Abdominal pain(Discharge Diagnosis) - 12/06/19 Physical exam(Discharge Diagnosis) - 12/06/19 Attending Physician: Eloina Zamora NP Referring Physician: Alber[facility]PIO[facility] Allergies, Adverse Reactions, Alerts Substance Reaction Severity [...] toxoids (DT) 10/16/03 Given 1Result Comment: FLU [facility] [id number] 2Result Comment: [08/03/2018] [facility] [id number] 3Result Comment: [id number] Medications amLODIPine 5 mg oral tablet 5 mg, 1, tablet, By Mouth, Daily, # 30 tablet, Refills 6, Tot. Refills 6, Maintenance, 10/19/19 11:58:00 EST, Route to Pharmacy Electronically, [facility]/pharmacy #[id number], 155, cm, 10/19/19 11:56:00 EST, Height Start Date: 10/19/19 Stop Date: 05/16/20 Status: Ordered losartan 100 mg oral tablet 1 tablet = 100 mg, By Mouth, Daily, # 30 tablet, 6 Refills, Maintenance, 10/19/19 11:52:00 EST, Tablet, [facility]/pharmacy #[id number], 155, cm, 10/19/19 11:24:00 EST, [...] Effective Dates Health Status Clinical Service Informant Benign paroxysmal positional vertigo Discharge Diagnosis 12/06/19 Cardiomyopathy - . Resolved 06 Discharge Diagnosis 12/06/19 Anemia Discharge Diagnosis 12/06/19 High blood pressure Discharge Diagnosis 12/06/19 Smoking Discharge Diagnosis 12/06/19 Abdominal pain Discharge Diagnosis 12/06/19 Physical exam Discharge Diagnosis 12/06/19 Vital Signs Most recent to oldest [Reference Range]: 1 2 Height 155 cm (12/06/19 10:16 AM) 155 cm (12/06/19 9:46 AM) Weight 85.6 kg (12/06/19 9:46 AM) Oxygen Saturation [94-100 %] 100 % (12/06/19 9:46 AM) Pulse Rate [55-90 bpm] 85 bpm (12/06/19 9:46 AM) Body Mass Index [18.5-24.99] 35.63 *>HHI* (12/06/19 9:46 AM) Blood Pressure [90-138/55-84 mm Hg] 136/ 88mm Hg (12/06/19 10:16 AM) 162/90mm Hg *H* (12/06/19 9:46 AM) Temperature [96.8-100.4 DegF] 98.4 DegF (12/06/19 9:46 AM) Mode of Delivery (Oxygen) Room air (12/06/19 9:46 AM) Blood pressure sites Arm, left (12/06/19 10:16 AM) Arm, right (12/06/19 9:46 AM) Temperature Route Oral (12/06/19 9:46 AM) Weight Obtained Via Standing scale (12/06/19 9:46 AM) Social History Social History Type Response Tobacco Use: 4 or less cigar ettes(less than 1/4 pack)/day in last 30 days. Sex
--- OUTSIDE RECORDS SUMMARY | 2023-07-21 02:55 | XMS_ITS | Continuity of Care Document ---
Author Name Unknown Organization [facility] Adult Address [address] [place] [address]- Care Team Providers Care Cushion Spring Assembler Name Role Phone Sera BLACKING WHEEL TENDER, Eloina Roberts Primary Care Physician [place] [facility] [place]23 [place] 07/03/23 [facility] Adult [address] [place] [address]- Allergies, Adverse Reactions, Alerts Substance Reaction Severity Status lisinopril cough Active Immunizations Given and Recorded Vaccine Date Status Refusal Reason influenza virus vaccine, inactivated 1 10/23/22 Gi braenn influenza virus vaccine, inactivated 2 08/10/21 Gi [...] diphtheria-tetanus toxoids (DT) 10/16/03 Given 1Result Comment: [facility]# [id number] 2Result Comment: [facility]# [id number] 3Result Comment: [facility]: [id number] 4Result Comment: FLU [facility] [id number] 5Result Comment: [08/03/2018] [facility] [id number] 6Result Comment: [id number] 7Result Comment: [facility]: [id number] Medications amLODIPine 10 mg oral tablet 1 tablet, By Mouth, Daily, for 90 days, # 90 tablet, 3 Refills, Physician Stop 10/18/23 11:08:00 EST, 10/23/22 11:08:00 EST, [facility]/pharmacy #[id number], 153, cm, 10/23/22 10:24:00 EST, [...] 10/23/22 11:08:00 EST, Route to Pharmacy Electronically, [facility]/pharmacy #[id number], Partial fill upon patient request if the prescription is for a schedule II opioid drug... Start Date: 10/23/22 Stop Date: 10/18/23 Status: Ordered [employer] COVID-19 Vaccine preservative-free intramuscular suspension 0.5 mL, Intramuscular, Once, # 0.5 mL, 0 Refills, Soft Stop, 02/06/21 11:54:00 EDT, Suspension, [facility]/pharmacy #[id number], Partial fill upon patient request if the prescription is for a schedule II opioid drug., 0.5 mL Intramuscular Once, 155, cm, 02/06/21 1... Start Date: 02/06/21 Status: Ordered losartan 50 mg oral tablet 50 mg, 1, tablet, By Mouth, Daily, # 90 tablet, Refills 3, Tot. Refills 3, Maintenance, 10/23/22 11:08:00 EST, Route to Pharmacy Electronically, [facility]/pharmacy #[id number], Partial fill upon patient request if the prescription is for a schedule II opioid drug... Start Date: 10/23/22 Stop Date: 10/18/23 Status: Ordered meclizine 25 mg oral tablet 1 tablet = 25 mg, By Mouth, 3 times a day, PRN for dizziness, # 21 tablet, 0 Refills, Maintenance, 05/06/23 12:28:00 EDT, Tablet, [facility]/pharmacy #[id number], Partial fill upon patient request [...] Refills, Maintenance, 01/04/21 9:20:00 EDT, Tablet, [facility]/pharmacy #[id number], Partial fill upon patient request [...] Refills, Maintenance, 02/07/23 11:01:00 EDT, [id number], 153, cm, 10/23/22 10:24:00 EST, Height, 84, [...] Team Personnel Name: Eloina Zamora NP Position: [facility] PCO Associate Professional Member Role: PCP Address: Address: [address] [place] [phone]- Name: Matt Cordero MD Position: [facility] Renal MD Member Role: Lifetime Consulting Physician Address: Address: [address] [place] [address] [facility] [place] [address]- Care Team Related Persons Name: PORSCHE VALENCIA Address: home [address] [place] [phone] Name: TRENTON VALENCIA Address: [address] [place] [address] Name: JEFFERY BOYKIN
--- NOTE | 2023-07-21 03:54 | ED_ITS ---
History of Present Illness General Chief Complaint: Epistaxis Stated Complaint: Nose bleed, coughing up blood Time Seen by Provider: 07/21/23 03:41 Source: patient Mode of arrival: ambulatory Limitations: no limitations History of Present Illness HPI Narrative: 53-year-old female history of diabetes mellitus and hypertension who presents emergency department for evaluation of 2 episodes of epistaxis since yesterday. Patient states that 1st episode started spontaneously, she has been bleeding from her right naris. She states that with pressure for approximately 15-20 minutes she was able to stop the bleeding. Prior to coming to the emergency department she states she felt blood dripping down the back of her throat, she woke up and blood was coming out of her right varies. She also states that there was a very long blood clot that came out of her right nares. Patient has never had nosebleeds before. She is not on blood thinners. She has not had any unusual bruising. Related Data Previous Rx's Medication Instructions Recorded cephalexin 500 mg capsule 500 mg PO QID 7 days #28 caps 07/01/21 doxycycline hyclate 100 mg capsule 100 mg PO BID 10 days #20 caps 07/01/21 doxycycline hyclate 100 mg tablet 100 mg PO BID #14 tabs 08/05/21 Allergies Allergy/AdvReac Type Severity Reaction Status Date / Time No Known Allergies Allergy Unverified 06/22/20 16:36 [No Known Allergies*] Review of Systems Review of Systems: Yes all other systems are reviewed and are negative [facility] Past Medical History [facility] Narrative: Social history: She smokes 1/3 pack cigarettes per day, she denies alcohol use, she denies drug use Medical History Diabetes HTN (hypertension) Social History Social History Advance Directives: No Advance Directives Information Provided: Yes Physical Exam Vital Signs: Vital Signs: Last Vital Signs Temp 98.2 F 07/21/23 02:54 Pulse 92 07/21/23 02:54 Resp 17 07/21/23 02:54 BP 167/81 H 07/21/23 02:54 Pulse Ox 96 07/21/23 02:54 O2 Del Method Room Air 07/21/23 02:54 BMI result Body Mass Index 38.6 Vital signs did reveal an elevated blood pressure of 167/81 otherwise unremarkable Exam General: Awake, alert in no distress Head: Normocephalic, atraumatic EENT: PERRL, Lids normal, sclera normal, conjunctiva normal, nose: There is no active bleeding from the left or right nares. Patient does have a small blood clot that can be seen on the anterior nasal septum which is most likely the source of bleeding. Neck: Supple, no adenopathy, trachea midline and nontender Psych: Pleasant, cooperative Medical Decision Making Medical Decision Making MDM Narrative: 53-year-old female history of hypertension, diabetes mellitus who presents to emergency department for evaluation of 2 episodes of epistaxis from the right nares. On exam patient does have a small blood clot that can be seen on the anterior nasal septum which is most likely the source of the bleeding. Patient is not actively bleeding at this time therefore do not think that she needs be cauterized or have a nasal packing I did discuss this with the patient. Patient was given to nose clip and I advised her to apply 1 nose clip for 20 minutes for bleeding. I told her if this is not stop the bleeding of her 20 minutes then she should come to the emergency department for re-evaluation. She was given printed and verbal instructions and discharged home Differential Diagnosis Differential Diagnoses: The differential diagnosis associated with the presentation includes Differential diagnosis includes was not limited to epistaxis secondary to tra mian, epistaxis secondary to dry nares, bleeding dyscrasia Chronic Conditions Patient?s care impacted by: Diabetes and Hypertension Discharge Plan Discharge Clinical Impression: Epistaxis Patient Disposition: Home, Self-Care Instructions: Nosebleed (ED) Additional Instructions: If the bleeding starts again, apply pressure to your nose for 20 minutes and this should stop the bleeding. If you continue to bleed despite applying pressure thin return to the emergency department for re-evaluation and for possible nasal packing Apply bacitracin to the inner part of your nose 3 times a day for 2 weeks to keep your nose moist. Follow-up with your doctor in 2 days. Please return to the emergency department if your symptoms get worse or if you develop any symptoms that are concerning to you. Prescriptions: No Action doxycycline hyclate 100 mg capsule 100 mg PO BID 10 Days Qty: 20 0RF cephalexin 500 mg capsule 500 mg PO QID 7 Days Qty: 28 0RF doxycycline hyclate 100 mg tablet 100 mg PO BID Qty: 14 0RF
== END 2023-07-21 04:33 | disposition home or self-care (01) ==
PROVIDERS: Emergency Provider Emergency Medicine Emergency Medical Services; PCP Nurse Practitioner Family
DX: R04.0 Epistaxis (principal); R04.2 Hemoptysis
CPT/HCPCS: 99282; 99284